=== PATIENT | female | born 1980 | race Two or more races ===

== ENCOUNTER 2019-05-26 19:48 | Emergency (ER) | payer SELFPAY ==
--- NOTE | 2019-05-26 20:12 | EDM.PDOC ---
ED HPI GENERAL MEDICAL PROBLEM - General Chief Complaint: Skin Complaint Stated Complaint: PT HAS RASH ON BODY Time Seen by Provider: 05/26/19 19:53 Source of Information: Reports: Patient History Limitations: Reports: No Limitations - History of Present Illness INITIAL COMMENTS - FREE TEXT/NARRATIVE: HISTORY AND PHYSICAL: History of present illness: Patient is a 39-year-old female who presents to the room today with complaints of multiple small boils which she has noticed over the past several weeks. Patient states she initially had one under her left breast and has noted a few along her underwear line and groin. She states she has been squeezing at them and does get minimal amount of purulent drainage from these. Denies any previous history of MRSA. Denies any history of diabetes. Patient has no systemic complaints. Review of systems: As per history of present illness and below otherwise all systems reviewed and negative. Past medical history: As per history of present illness and as reviewed below otherwise noncontributory. Surgical history: As per history of present illness and as reviewed below otherwise noncontributory. Social history: See social history for further information Family history: As per history of present illness and as reviewed below otherwise noncontributory. Physical exam: General: Well-developed and well-nourished 39-year-old female. Alert and oriented. Nontoxic appearing and in no acute distress. HEENT: Atraumatic, normocephalic, pupils equal and reactive bilaterally, negative for conjunctival pallor or scleral icterus, mucous membranes moist, trachea midline. No drooling or trismus noted. No meningeal signs. No hot potato voice noted. Lungs: Clear to auscultation, breath sounds equal bilaterally, chest nontender. Heart: S1S2, regular rate and rhythm without overt murmur Abdomen: Soft, nondistended, nontender. Skin: Several scattered localized areas of erythema with a white center, nonfluctuant, nonindurated. Otherwise skin is intact, warm, dry. No lesions or rashes noted. Extremities: Atraumatic, moves all extremities per self without difficulty or deficits, negative for cords or calf pain. Neurovascular unremarkable. Neuro: Awake, alert, oriented. Cranial nerves II through XII unremarkable. Cerebellum unremarkable. Motor and sensory unremarkable throughout. Exam nonfocal. Notes: The areas do not appear that they can be I&D. We discussed medication and supportive care measures. Encouraged her to follow-up with her primary care provider for reevaluation. Voices understanding and is agreeable to plan of care. Denies any further questions or concerns at this time. Diagnostics: None Therapeutics: None Prescription: Bactrim DS Impression: Folliculitis Plan: 1. Wash the areas gently with soap and water. Keep them clean and dry. Please avoid squeezing or poking them. 2. Take the medication as directed. If symptoms do not improve please follow-up with primary care as we discussed. 3. Return to the ED as needed and as discussed. Definitive disposition and diagnosis as appropriate pending reevaluation and review of above. Generalized Pain Score (Numeric/FACES): 7 - Related Data Allergies Allergy/AdvReac Type Severity Reaction Status Date / Time No Known Allergies Allergy Verified 05/26/19 20:09 Home Meds: Home Meds Sulfamethoxazole/Trimethoprim [Bactrim Ds Tablet] 1 each PO BID 10 Days #20 tablet 05/26/19 [Rx] ED ROS GENERAL - Review of Systems Review Of Systems: ROS reveals no pertinent complaints other than HPI. ED EXAM, SKIN/RASH Exam: See Below (See dictation) Course - Vital Signs Last Recorded V/S: Last Vital Signs Temp 96.8 F 05/26/19 20:07 Pulse 87 05/26/19 20:07 Resp 18 05/26/19 20:07 BP 132/80 05/26/19 20:07 Pulse Ox 98 05/26/19 20:07 Departure - Departure Time of Disposition: 20:19 Disposition: Home, Self-Care 01 Clinical Impression: Folliculitis - Discharge Information Prescriptions: Sulfamethoxazole/Trimethoprim [Bactrim Ds Tablet] 1 each PO BID 10 Days #20 tablet Instructions: MRSA Infection, Adult Referrals: PCP,None [Primary Care Provider] - Forms: ED Department Discharge Additional Instructions: The following information is given to patients seen in the emergency department who are being discharged to home. This information is to outline your options for follow-up care. We provide all patients seen in our emergency department with a follow-up referral. The need for follow-up, as well as the timing and circumstances, are variable depending upon the specifics of your emergency department visit. If you don't have a primary care physician on staff, we will provide you with a referral. We always advise you to contact your personal physician following an emergency department visit to inform them of the circumstance of the visit and for follow-up with them and/or the need for any referrals to a consulting specialist. The emergency department will also refer you to a specialist when appropriate. This referral assures that you have the opportunity for follow-up care with a specialist. All of these measure are taken in an effort to provide you with optimal care, which includes your follow-up. Under all circumstances we always encourage you to contact your private physician who remains a resource for coordinating your care. When calling for follow-up care, please make the office aware that this follow-up is from your recent emergency room visit. If for any reason you are refused follow-up, please contact the [facility] Emergency Department at and asked to speak to the emergency department charge nurse. [facility] [address] [place] [id number] [facility] [address] [place] [id number] 1. Wash the areas gently with soap and water. Keep them clean and dry. Please avoid squeezing or poking them. 2. Take the medication as directed. If symptoms do not improve please follow-up with primary care as we discussed. 3. Return to the ED as needed and as discussed.
== END 2019-05-26 20:31 | disposition home or self-care (01) ==
LOC: MW.ED 19:48
DX: L73.9 Follicular disorder, unspecified (principal)
CPT/HCPCS: 99282

== ENCOUNTER 2019-06-01 17:54 | Emergency (ER) | payer SELFPAY ==
--- NOTE | 2019-06-01 19:24 | EDM.PDOC ---
ED HPI GENERAL MEDICAL PROBLEM - General Chief Complaint: General Stated Complaint: SICK Time Seen by Provider: 06/01/19 18:38 - History of Present Illness INITIAL COMMENTS - FREE TEXT/NARRATIVE: HISTORY AND PHYSICAL: History of present illness: The patient is a 39-year-old female who was seen here in our emergency department on May 26 for small areas of boils and folliculitis and was placed on Bactrim which she is currently taking. She presents for reevaluation of these areas because she is concerned that they are not healing. The patient also is taking an antibiotic, doxycycline, that she got from a doctor in [place] and she is not sure if that is helping or not. She states compliance with Bactrim. She is currently on her menstrual cycle which occurred at the normal time and denies and says she has some lower back pain which she thinks is from her period and she thinks she may have had a slight fever this morning which is now gone and had some nausea and vomiting and she has had food and drinks since that time. She says that she has some discomfort at one of the areas of her left breast as well as her lower abdominal area but has no abdominal pain Review of systems: As per history of present illness and below otherwise all systems reviewed and negative. Past medical history: As per history of present illness and as reviewed below otherwise noncontributory. Surgical history: As per history of present illness and as reviewed below otherwise noncontributory. Social history: No reported history of drug or alcohol abuse. Family history: As per history of present illness and as reviewed below otherwise noncontributory. Physical exam: Female is nontoxic and vital signs are noted by me. She moves easily without distress in the ED HEENT: Atraumatic, normocephalic, negative for conjunctival pallor or scleral icterus, mucous membranes moist, throat clear, neck supple, nontender, trachea midline. Lungs: Clear to auscultation, breath sounds equal bilaterally, chest nontender. Heart: S1S2, regular in rhythm no overt murmurs Abdomen: Soft, nondistended, nontender. Negative for costovertebral tenderness. Pelvis: Deferred Genitourinary: Deferred. Rectal: Deferred. Extremities: Atraumatic, negative for cords or calf pain. Neurovascular unremarkable. Neuro: Awake, alert, oriented. Cranial nerves II through XII unremarkable. Cerebellum unremarkable. Motor and sensory unremarkable throughout. Exam nonfocal. Skin: Turgor is normal and there are scattered areas representing the skin lesions that the patient was seen for on May 26 which now demonstrate healing, one noted at the right lower buttocks area, one noted at left lower buttocks area, one at the right medial breast as well as a few scattered areas on the lower mid abdomen. There are 2 other areas one at the lateral left breast which still shows some erythema but no fluctuance or drainage as well as one area in the lower abdominal wall which also demonstrates some surrounding erythema but no fluctuance or drainage. All of these skin areas demonstrate healing consistent with the patient's ongoing therapy. Diagnostics: [] Therapeutics: [] I discussed with the patient that she needs to continue the Bactrim antibiotics that she has 5 more days of I will add Bactroban to apply topically to the areas that have some open component as described above. I've advised her to connect with one of her clinic provider for reevaluation and further care and to return here if any of her other vague symptoms eval for develop. She was advised push hydration and use [id number] medications for pain or fevers. Impression: Reevaluation of folliculitis/skin lesions/cellulitis Definitive disposition and diagnosis as appropriate pending reevaluation and review of above. Generalized Pain Score (Numeric/FACES): 5 - Related Data Allergies Allergy/AdvReac Type Severity Reaction Status Date / Time No Known Allergies Allergy Verified 05/26/19 20:09 Home Meds: Home Meds Sulfamethoxazole/Trimethoprim [Bactrim Ds Tablet] 1 each PO BID 10 Days #20 tablet 05/26/19 [Rx] Doxycycline [Vibramycin] 100 mg PO BID 06/01/19 [History] Past Medical History - Past Health History Medical/Surgical History: Denies Medical/Surgical History - Past Surgical History HEENT Surgical History: Reports: Other (See Below) Other HEENT Surgeries/Procedures: ear surgery Social & Family History - Family History Family Medical History: Noncontributory - Tobacco Use Smoking Status *Q: Never Smoker Second Hand Smoke Exposure: No - Caffeine Use Caffeine Use: Reports: Soda - Recreational Drug Use Recreational Drug Use: No ED ROS GENERAL - Review of Systems Review Of Systems: ROS reveals no pertinent complaints other than HPI. ED EXAM, GENERAL - Physical Exam Exam: See Below (see dictation) Course - Vital Signs Last Recorded V/S: Last Vital Signs Temp 36.1 C 06/01/19 18:07 Pulse 93 06/01/19 18:07 Resp 20 06/01/19 18:07 BP 102/72 06/01/19 18:07 Pulse Ox 98 06/01/19 18:07 Departure - Departure Time of Disposition: 19:24 Disposition: Home, Self-Care 01 Condition: Good Clinical Impression: Cellulitis Qualifiers: Site of cellulitis: unspecified site Qualified Code(s): L03.90 - Cellulitis, unspecified - Discharge Information Referrals: PCP,None [Primary Care Provider] - Additional Instructions: The following information is given to patients seen in the emergency department who are being discharged to home. This information is to outline your options for follow-up care. We provide all patients seen in our emergency department with a follow-up referral. The need for follow-up, as well as the timing and circumstances, are variable depending upon the specifics of your emergency department visit. If you don't have a primary care physician on staff, we will provide you with a referral. We always advise you to contact your personal physician following an emergency department visit to inform them of the circumstance of the visit and for follow-up with them and/or the need for any referrals to a consulting specialist. The emergency department will also refer you to a specialist when appropriate. This referral assures that you have the opportunity for followup care with a specialist. All of these measure are taken in an effort to provide you with optimal care, which includes your followup. Under all circumstances we always encourage you to contact your private physician who remains a resource for coordinating your care. When calling for followup care, please make the office aware that this follow-up is from your recent emergency room visit. If for any reason you are refused follow-up, please contact the [facility] emergency department at and ask to speak to the emergency department charge nurse. [facility] Primary care- Internal Medicine and Family [address] [id number] Please continue and finish the Bactrim antibiotics that you have that you received here on May 26. At the topical education the you've been prescribed today and apply this mostly to the area at your left breast in the lower abdomen where there is redness and the skin is more irritated. Please call and connect with one of our providers in the clinic or your provider for reevaluation further care after you complete the antibiotic therapy and return to ER as needed and as discussed
== END 2019-06-01 19:45 | disposition home or self-care (01) ==
LOC: MW.ED 17:54
DX: L03.311 Cellulitis of abdominal wall (principal); N61.0 Mastitis without abscess
CPT/HCPCS: 99283

== ENCOUNTER 2019-11-10 13:24 | Emergency (ER) | payer OTHER, SELFPAY ==
[2019-11-10] MEDS ORDERED: Lidocaine 1% 10 ML MDV INJECT ONE (13:39)
--- NOTE | 2019-11-10 13:48 | EDM.PDOC ---
ED HPI GENERAL MEDICAL PROBLEM - General Chief Complaint: Skin Complaint Stated Complaint: ABCESS UNDER ARM Time Seen by Provider: 11/10/19 13:29 Source of Information: Reports: Patient History Limitations: Reports: No Limitations - History of Present Illness INITIAL COMMENTS - FREE TEXT/NARRATIVE: HISTORY AND PHYSICAL: History of present illness: Patient is a 39-year-old female who presents to the emergency room with concerns of an abscess to her back. Patient reports she does have a history of MRSA and has taken antibiotics for previous abscesses. Yesterday she went swimming with her son and noticed a small area of redness along her bra line. She states she was concerned that she could have a new abscess. Patient denies any fever, chills, headache, change in vision, syncope or near syncope. Denies any chest pain, back pain, shortness of breath or cough. Denies any abdominal pain, nausea, vomiting, diarrhea, constipation or dysuria. Patient has been eating and drinking appropriately. Review of systems: As per history of present illness and below otherwise all systems reviewed and negative. Past medical history: As per history of present illness and as reviewed below otherwise noncontributory. Surgical history: As per history of present illness and as reviewed below otherwise noncontributory. Social history: See social history for further information Family history: As per history of present illness and as reviewed below otherwise noncontributory. Physical exam: General: Well-developed and well-nourished 39-year-old female. Alert and oriented. Nontoxic-appearing and in no acute distress. HEENT: Atraumatic, normocephalic, pupils equal and reactive bilaterally, negative for conjunctival pallor or scleral icterus, mucous membranes moist, trachea midline. No drooling or trismus noted. No meningeal signs. No hot potato voice noted. Lungs: Clear to auscultation, breath sounds equal bilaterally, chest nontender. Heart: S1S2, regular rate and rhythm without overt murmur Abdomen: Soft, nondistended, nontender. Negative for masses or hepatosplenomegaly. Negative for costovertebral tenderness. Skin: Irritated follicle noted to the right flank area along her bra line. She does have some healing boils along her pant line which are non-indurated and nonfluctuant. Remaining skin is intact, warm, dry. No lesions or rashes noted. Extremities: Atraumatic, moves all extremities per self without difficulty or deficits, negative for cords or calf pain. Neurovascular unremarkable. Neuro: Awake, alert, oriented. Cranial nerves II through XII unremarkable. Cerebellum unremarkable. Motor and sensory unremarkable throughout. Exam nonfocal. Notes: The area in question on her right flank area is nonfluctuant and cannot be drained at this time. Approximately the size of a nickel. She does have some resolving areas along her pant line which she states were abscesses before and are currently "healing now". Signs and symptoms that would prompt her to return to the emergency room were reviewed and discussed. Patient and supportive care measures were reviewed and discussed. Voices understanding and is agreeable to plan of care. Denies any further questions or concerns at this time. Diagnostics: None Therapeutics: None Prescription: Bactrim DS Impression: Folliculitis Plan: 1. Keep the skin clean and dry. Continue to monitor sites for improvement. 2. Tylenol and/or ibuprofen as needed and as directed. 3. Follow-up with your primary care provider as we discussed. Return to the ED as needed and as discussed. Definitive disposition and diagnosis as appropriate pending reevaluation and review of above. skin, back Pain Score (Numeric/FACES): 5 - Related Data Allergies Allergy/AdvReac Type Severity Reaction Status Date / Time No Known Allergies Allergy Verified 11/10/19 13:36 Home Meds: Home Meds . [No Known Home Meds] 11/10/19 [History] Past Medical History - Past Health History Medical/Surgical History: Denies Medical/Surgical History - Infectious Disease History Infectious Disease History: Reports: MRSA - Past Surgical History HEENT Surgical History: Reports: Other (See Below) Other HEENT Surgeries/Procedures: ear surgery Social & Family History - Family History Family Medical History: Noncontributory - Tobacco Use Smoking Status *Q: Former Smoker Used Tobacco, but Quit: Yes Month/Year Tobacco Last Used: 2018 - Caffeine Use Caffeine Use: Reports: Coffee, Soda - Recreational Drug Use Recreational Drug Use: No ED ROS GENERAL - Review of Systems Review Of Systems: Comprehensive ROS is negative, except as noted in HPI. ED EXAM, SKIN/RASH Exam: See Below (See dictation) Course - Vital Signs Last Recorded V/S: Last Vital Signs Temp 97.9 F 11/10/19 13:34 Pulse 87 11/10/19 13:34 Resp 16 11/10/19 13:34 BP 134/77 11/10/19 13:34 Pulse Ox 97 11/10/19 13:34 - Orders/Labs/Meds Meds: Medications Discontinued Medications Generic Name Dose Route Start Last Admin Trade Name Leatha PRN Reason Stop Dose Admin Lidocaine HCl 10 ml 11/10/19 13:39 Xylocaine 1% INJECT 11/10/19 13:40 ONETIME ONE Departure - Departure Time of Disposition: 13:48 Disposition: Home, Self-Care 01 Clinical Impression: Folliculitis - Discharge Information Referrals: PCP,None [Primary Care Provider] - Additional Instructions: The following information is given to patients seen in the emergency department who are being discharged to home. This information is to outline your options for follow-up care. We provide all patients seen in our emergency department with a follow-up referral. The need for follow-up, as well as the timing and circumstances, are variable depending upon the specifics of your emergency department visit. If you don't have a primary care physician on staff, we will provide you with a referral. We always advise you to contact your personal physician following an emergency department visit to inform them of the circumstance of the visit and for follow-up with them and/or the need for any referrals to a consulting specialist. The emergency department will also refer you to a specialist when appropriate. This referral assures that you have the opportunity for follow-up care with a specialist. All of these measure are taken in an effort to provide you with optimal care, which includes your follow-up. Under all circumstances we always encourage you to contact your private physician who remains a resource for coordinating your care. When calling for follow-up care, please make the office aware that this follow-up is from your recent emergency room visit. If for any reason you are refused follow-up, please contact the [facility] Emergency Department at and asked to speak to the emergency department charge nurse. [facility] [address] [place] [address] [id number] [address] [address] 1. Keep the skin clean and dry. Continue to monitor sites for improvement. 2. Tylenol and/or ibuprofen as needed and as directed. 3. Follow-up with your primary care provider as we discussed. Return to the ED as needed and as discussed. Sepsis Event Note - Evaluation Sepsis Screening Result: No Definite Risk - Focused Exam Vital Signs: Vital Signs Temp Pulse Resp BP Pulse Ox 11/10/19 13:34 97.9 F 87 16 134/77 97 Date Exam was Performed: 11/10/19 Time Exam was Performed: 13:42
== END 2019-11-10 14:01 | disposition home or self-care (01) ==
LOC: MW.ED 13:24
DX: L73.9 Follicular disorder, unspecified (principal); Z87.891 Personal history of nicotine dependence
CPT/HCPCS: 99282

== ENCOUNTER 2020-01-03 04:13 | Emergency (ER) | payer SELFPAY ==
--- NOTE | 2020-01-03 04:35 | EDM.PDOC ---
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 Patient states pain does radiate to the back. She rates the pain as moderate to severe in intensity. She is feeling a little nauseous denies any vomiting or diarrhea. Patient denies any dysuria or hematuria. Patient is 8 weeks by a positive home tests and last menstrual period. She denies any vaginal bleeding. She is taken nothing for current pain symptoms. Patient is scheduled for her first OB appointment this week. This is a second time she has been . Onset: Today Duration: Getting Worse Location: Reports: Abdomen Quality: Reports: Ache Severity: Moderate Improves with: Reports: None Worsens with: Reports: None Associated Symptoms: Reports: No Other Symptoms low pelvic, wraps around to R lower back Pain Score (Numeric/FACES): 7 - Related Data Allergies Allergy/AdvReac Type Severity Reaction Status Date / Time No Known Allergies Allergy Verified 01/03/20 04:27 Home Meds: Home Meds Folic Acid 1 tab PO DAILY 01/03/20 [History] cephALEXin [Keflex] 500 mg PO Q8H #20 cap 01/03/20 [Rx] Past Medical History - Past Health History Medical/Surgical History: Denies Medical/Surgical History - Infectious Disease History Infectious Disease History: Reports: MRSA - Past Surgical History HEENT Surgical History: Reports: Other (See Below) Other HEENT Surgeries/Procedures: ear surgery Social & Family History - Family History Family Medical History: Noncontributory - Caffeine Use Caffeine Use: Reports: Coffee, Soda ED ROS GENERAL - Review of Systems Review Of Systems: Comprehensive ROS is negative, except as noted in HPI. ED EXAM - Physical Exam Exam: See Below Exam Limited By: Other (Tajik is her second language.) General Appearance: Alert, No Apparent Distress Head: Atraumatic Neck: Normal Inspection, Supple Respiratory/Chest: No Respiratory Distress, Lungs Clear, Normal Breath Sounds Cardiovascular: Regular Rate, Rhythm, No JVD GI/Abdominal Exam: Normal Bowel Sounds, Soft, Tender, Other (Patient has mild suprapubic tenderness without any guarding or mass appreciated.) Back Exam: Normal Inspection. No: CVA Tenderness (L), CVA Tenderness (R) Extremities: Normal Inspection Neurological: Alert, Oriented Psychiatric: Normal Affect Skin Exam: Warm, Normal Color Course - Vital Signs Text/Narrative:: Baseline quant was drawn. Patient's urine is positive for urinary tract infection I am starting her on Keflex. Ultrasound shows a single IUP at 8 weeks. Patient has an appointment with her bioprocessing manufacturing technician for the first time today. She is instructed to return to emergency department anytime her symptoms were to worsen otherwise she may take Tylenol as needed. Last Recorded V/S: Last Vital Signs Temp 36.3 C 01/03/20 06:03 Pulse 64 01/03/20 06:03 Resp 14 01/03/20 06:03 BP 97/64 01/03/20 06:03 Pulse Ox 99 01/03/20 06:03 - Orders/Labs/Meds Orders: Active Orders 24 hr Category Date Time Status CULTURE URINE [RM] Stat Lab 01/03/20 04:25 Received Labs: Laboratory Tests 01/03/20 01/03/20 01/03/20 Range/Units 04:25 04:45 04:45 WBC 9.81 (4.0-11.0) K/uL RBC 4.57 (4.30-5.90) M/uL Hgb 14.5 (12.0-16.0) g/dL Hct 42.5 (36.0-46.0) % MCV 93.0 (80.0-98.0) fL MCH 31.7 (27.0-32.0) pg MCHC 34.1 (31.0-37.0) g/dL RDW Std Deviation 43.1 (28.0-62.0) fl RDW Coeff of Yary 13 (11.0-15.0) % Plt Count 264 (150-400) K/uL MPV 9.30 (7.40-12.00) fL Neut % (Auto) 66.9 (48.0-80.0) % Lymph % (Auto) 22.3 (16.0-40.0) % Gilliam % (Auto) 8.0 (0.0-15.0) % Eos % (Auto) 2.4 (0.0-7.0) % Baso % (Auto) 0.4 (0.0-1.5) % Neut # (Auto) 6.6 H (1.4-5.7) K/uL Lymph # (Auto) 2.2 (0.6-2.4) K/uL Gilliam # (Auto) 0.8 (0.0-0.8) K/uL Eos # (Auto) 0.2 (0.0-0.7) K/uL Baso # (Auto) 0.0 (0.0-0.1) K/uL Nucleated RBC % 0.0 /100WBC Nucleated RBCs # 0 K/uL HCG, Quant 86645.0 mIU/mL Urine Color YELLOW Urine Appearance SLT CLOUDY Urine pH 6.0 (5.0-8.0) Ur Specific [place] >= 1.030 (1.001-1.035) Urine Protein NEGATIVE (NEGATIVE) mg/dL Urine Glucose (UA) NEGATIVE (NEGATIVE) mg/dL Urine Ketones NEGATIVE (NEGATIVE) mg/dL Urine Occult Blood MODERATE H (NEGATIVE) Urine Nitrite NEGATIVE (NEGATIVE) Urine Bilirubin NEGATIVE (NEGATIVE) Urine Urobilinogen 0.2 (<2.0) EU/dL Ur Leukocyte Esterase MODERATE H (NEGATIVE) Urine RBC 0-2 (0-2/HPF) Urine WBC 6-12 (0-5/HPF) Ur Epithelial Cells FEW (NONE-FEW) Urine Bacteria 1+ H (NEGATIVE) Meds: Medications Discontinued Medications Generic Name Dose Route Start Last Admin Trade Name Freq PRN Reason Stop Dose Admin Acetaminophen 650 mg 01/03/20 04:38 01/03/20 04:53 Tylenol PO 01/03/20 04:39 650 mg NOW ONE Administration Cephalexin 500 mg 01/03/20 05:39 01/03/20 06:06 Keflex PO 01/03/20 05:40 500 mg ONETIME ONE Administration Sodium Chloride 1,000 mls @ 999 mls/hr 01/03/20 04:37 01/03/20 04:51 Normal Saline IV 01/03/20 05:37 999 mls/hr .BOLUS ONE Administration Departure - Departure Time of Disposition: 06:09 Disposition: Home, Self-Care 01 Condition: Good Clinical Impression: First trimester - Discharge Information Instructions: First Trimester of , [id number] Referrals: PCP,None [Primary Care Provider] - Forms: ED Department Discharge Additional Instructions: Follow-up with bioprocessing manufacturing technician as scheduled today. Return to ER if worse. Keflex for urinary tract infection. Increase fluids. Tylenol as needed. Care Plan Goals: The following information is given to patients seen in the emergency department who are being discharged to home. This information is to outline your options for follow-up care. We provide all patients seen in our emergency department with a follow-up referral. The need for follow-up, as well as the timing and circumstances, are variable depending upon the specifics of your emergency department visit. If you don't have a primary care physician on staff, we will provide you with a referral. We always advise you to contact your personal physician following an emergency department visit to inform them of the circumstance of the visit and for follow-up with them and/or the need for any referrals to a consulting specialist. The emergency department will also refer you to a specialist when appropriate. This referral assures that you have the opportunity for follow-up care with a specialist. All of these measure are taken in an effort to provide you with optimal care, which includes your follow-up. Under all circumstances we always encourage you to contact your private physician who remains a resource for coordinating your care. When calling for follow-up care, please make the office aware that this follow-up is from your recent emergency room visit. If for any reason you are refused follow-up, please contact the [facility] Emergency Department at and asked to speak to the emergency department charge nurse. Sepsis Event Note - Evaluation Sepsis Screening Result: No Definite Risk - Focused Exam Vital Signs: Vital Signs Temp Pulse Resp BP Pulse Ox 01/03/20 06:03 36.3 C 64 14 97/64 99 01/03/20 04:24 36.3 C 87 18 110/81 97 Date Exam was Performed: 01/03/20 Time Exam was Performed: 06:08 - My Orders Last 24 Hours: My Active Orders 01/03/20 04:25 CULTURE URINE [RM] Stat - Assessment/Plan Last 24 Hours: My Active Orders 01/03/20 04:25 CULTURE URINE [RM] Stat
[2020-01-03] MEDS ORDERED: Sodium Chloride 0.9% 1,000 ML IV ONE (04:37)
[2020-01-03] MEDS ORDERED: Acetaminophen 325 MG Tab PO ONE (04:38)
[2020-01-03] MEDS ORDERED: Cephalexin 500 MG Cap PO ONE (05:39)
--- NOTE | 2020-01-03 06:00 | US ---
INDICATION: Pelvic pain TECHNIQUE: Ultrasound OB pelvis transvaginal. Real time saul scale imaging of the pelvis was performed. COMPARISON: None FINDINGS: Gestational sac: Sonographic imaging demonstrates a single intrauterine gestation with a normal appearance. A small subchorionic hemorrhage is present along the inferior margin of the gestational sac.The amount of fluid within the sac appears appropriate for gestational age. Fetus: The embryo demonstrates a regular cardiac rate measuring 156 beats per minute. The embryo`s crown rump length measurement of 18 mm corresponds to a gestational age of 8 weeks, 2 days. There are no gross abnormalities noted within the embryo at this early state of development. There is a normal appearing yolk sac. Placenta: The placenta has not yet developed. Pelvis: The visualized cervix is closed. The visualized myometrium appears normal. The ovaries are of normal size. A thick walled corpus luteal cyst is seen in the left ovary. Arterial blood flow seen in both ovaries. No significant ascites noted. IMPRESSION: 1. Single viable intrauterine with an estimated gestational age of 8 weeks, 2 days. 2. A small subchorionic hemorrhage is present along the inferior margin of the gestational sac. Dictated by Arthur Rudolph MD @ 01/03/2020 5:57:47 AM Dictated by: Arthur Rudolph MD @ 01/03/2020 05:59:15 (Electronically Signed)
== END 2020-01-03 06:22 | disposition home or self-care (01) ==
LOC: MW.ED 04:13
DX: O99.89 Other specified diseases and conditions complicating pregnancy, childbirth and the puerperium (principal); R10.30 Lower abdominal pain, unspecified; Z3A.08 8 weeks gestation of pregnancy
CPT/HCPCS: 36415; 76801; 81001; 84702; 85025; 87086; 99284; A9270; J7030; 99282

== ENCOUNTER 2020-01-24 21:47 | Emergency (ER) | payer SELFPAY ==
--- NOTE | 2020-01-24 21:53 | EDM.PDOC ---
ED HPI GENERAL MEDICAL PROBLEM - General Chief Complaint: Genitourinary Problem Stated Complaint: UTI Time Seen by Provider: 01/24/20 21:50 Source of Information: Reports: Patient History Limitations: Reports: No Limitations - History of Present Illness INITIAL COMMENTS - FREE TEXT/NARRATIVE: Patient is a 39-year-old female who is with a uterine seen by me 3 weeks ago at which time she had an ultrasound and a urinary tract infection. I placed her on Keflex but she has had no follow-up with her UTI. Patient became symptomatic again 3 days ago and is complaining of increased frequency and some dysuria. She is complaining of some suprapubic pain but denies any CVA or back tenderness. She has not been running a fever is not nauseous vomiting or having diarrhea. She denies any hematuria or any cramping pain. She had no vaginal bleeding. 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 ED EXAM, RENAL/ - Physical Exam Exam: See Below Exam Limited By: Language Barrier General Appearance: Alert, No Apparent Distress Head: Normocephalic Neck: Normal Inspection, Supple Respiratory/Chest: No Respiratory Distress, Lungs Clear Cardiovascular: Regular Rate, Rhythm, No Edema GI/Abdominal: Soft, Non-Tender Back Exam: Normal Inspection. No: CVA Tenderness (L), CVA Tenderness (R) Extremities: Normal Inspection Neurological: Alert, Oriented Psychiatric: Normal Affect Skin Exam: Warm, Dry Course - Vital Signs Text/Narrative:: Urine is positive for moderate amount of leukocyte Estrace. I am starting patient on Macrobid which is a class B for . Apparently patient failed her course of Keflex 3 weeks ago. I am recommending she follow-up with her managing attorney and/or PCP for recheck in 7 days. Return to ER sooner if not improving or worse. Last Recorded V/S: Last Vital Signs Temp 36.2 C 01/24/20 21:51 Pulse 85 01/24/20 22:23 Resp 17 01/24/20 22:23 BP 109/73 01/24/20 22:23 Pulse Ox 98 01/24/20 22:23 - Orders/Labs/Meds Labs: Laboratory Tests 01/24/20 Range/Units 22:00 Urine Color YELLOW Urine Appearance CLEAR Urine pH 5.5 (5.0-8.0) Ur Specific Lane >= 1.030 (1.001-1.035) Urine Protein NEGATIVE (NEGATIVE) mg/dL Urine Glucose (UA) NEGATIVE (NEGATIVE) mg/dL Urine Ketones NEGATIVE (NEGATIVE) mg/dL Urine Occult Blood NEGATIVE (NEGATIVE) Urine Nitrite NEGATIVE (NEGATIVE) Urine Bilirubin NEGATIVE (NEGATIVE) Urine Urobilinogen 0.2 (<2.0) EU/dL Ur Leukocyte Esterase MODERATE H (NEGATIVE) Urine RBC 0-1 (0-2/HPF) Urine WBC 1-2 (0-5/HPF) Ur Epithelial Cells RARE (NONE-FEW) Urine Bacteria RARE (NEGATIVE) Meds: Medications Discontinued Medications Generic Name Dose Route Start Last Admin Trade Name Freq PRN Reason Stop Dose Admin Nitrofurantoin Macrocrystals 100 mg 01/24/20 22:16 01/24/20 22:21 Macrobid PO 01/24/20 22:17 100 mg ONETIME ONE Administration Departure - Departure Time of Disposition: 23:15 Disposition: Home, Self-Care 01 Condition: Good Clinical Impression: Urinary tract infection during in first trimester, UTI, Urinary tract infectious disease - Discharge Information Instructions: and Urinary Tract Infection Forms: ED Department Discharge Additional Instructions: The following information is given to patients seen in the emergency department who are being discharged to home. This information is to outline your options for follow-up care. We provide all patients seen in our emergency department with a follow-up referral. The need for follow-up, as well as the timing and circumstances, are variable depending upon the specifics of your emergency department visit. If you don't have a primary care physician on staff, we will provide you with a referral. We always advise you to contact your personal physician following an emergency department visit to inform them of the circumstance of the visit and for follow-up with them and/or the need for any referrals to a consulting specialist. The emergency department will also refer you to a specialist when appropriate. This referral assures that you have the opportunity for follow-up care with a specialist. All of these measure are taken in an effort to provide you with optimal care, which includes your follow-up. Under all circumstances we always encourage you to contact your private physician who remains a resource for coordinating your care. When calling for follow-up care, please make the office aware that this follow-up is from your recent emergency room visit. If for any reason you are refused follow-up, please contact the [facility] Emergency Department at and asked to speak to the emergency department charge nurse. Care Plan Goals: Macrobid as prescribed. Follow-up with CHECKING DEPARTMENT SUPERVISOR or PCP in days to recheck your urine. ER if having fever or chills, vomiting or worse. Sepsis Event Note - Focused Exam Vital Signs: Vital Signs Temp Pulse Resp BP Pulse Ox 01/24/20 22:23 85 17 109/73 98 01/24/20 21:51 36.2 C 93 18 115/81 98 Date Exam was Performed: 01/24/20 Time Exam was Performed: 23:11
[2020-01-24] MEDS ORDERED: Nitrofurantoin Monohydrate/Macrocrystalline 100 MG Cap PO ONE (22:16)
== END 2020-01-24 23:25 | disposition home or self-care (01) ==
LOC: MW.ED 21:47
DX: O23.41 Unspecified infection of urinary tract in pregnancy, first trimester (principal); Z3A.12 12 weeks gestation of pregnancy
CPT/HCPCS: 81001; 99284; A9270; 99282

== ENCOUNTER 2020-06-27 10:30 | Emergency (ER) | payer SELFPAY | END 2020-06-27 12:52 | disposition left against medical advice (07) | LOC: MW.ED 10:30 | DX: Z53.21 Procedure and treatment not carried out due to patient leaving prior to being seen by health care provider (principal) ==

== ENCOUNTER 2020-08-09 12:04 | Inpatient (IN) | payer MEDICAID ==
[2020-08-09] MEDS ORDERED: Nalbuphine 10 MG/1 ML Vial IVPUSH PRN (15:18)
[2020-08-09] MEDS ORDERED: Lidocaine 1% 50 ML MDV INJECT PRN (15:18)
[2020-08-09] MEDS ORDERED: Sodium Chloride 0.9% 10 ML Syringe FLUSH PRN (15:18)
[2020-08-09] MEDS ORDERED: Carboprost Tromethamine 250 MCG/1 ML Amp IM PRN (15:18)
[2020-08-09] MEDS ORDERED: Sodium Chloride 0.9% 10 ML SDV IV PRN (15:18)
[2020-08-09] MEDS ORDERED: Methylergonovine 0.2 MG/1 ML Amp IM PRN ×2 (15:18→19:09)
[2020-08-09] MEDS ORDERED: Tranexamic Acid 1,000 MG in Sodium Chloride 0.9% 100 ML IV PRN ×2 (15:18→19:09)
[2020-08-09] MEDS ORDERED: Butorphanol 1 MG/ML SDV IVPUSH PRN (15:18)
[2020-08-09] MEDS ORDERED: Misoprostol 200 MCG Tab PO PRN (15:18)
[2020-08-09] MEDS ORDERED: Water For Irrigation,Sterile 1,000 ML Container IRR PRN (15:18)
[2020-08-09] MEDS ORDERED: Sodium Chloride 0.9% 2.5 ML Syringe FLUSH PRN (15:18)
[2020-08-09] MEDS ORDERED: Lactated Ringers 1,000 ML IV SCH (15:30)
[2020-08-09] MEDS ORDERED: Oxytocin/0.9 % Sodium Chloride 30 UNIT/500 ML BAG IV SCH (15:30)
[2020-08-09] MEDS ORDERED: fentaNYL 100 MCG/2 ML SDV ONE ×3 (16:00→19:21)
[2020-08-09] MEDS ORDERED: Ropivacaine HCl/PF 100 ML ONE (16:00)
--- NOTE | 2020-08-09 16:06 | PCM.LDHP ---
L&D History of Present Illness - General Date of Service: 08/09/20 Admit Problem/Dx: Patient Status Order with Admit Dx/Problem 08/09/20 15:18 Patient Status [ADT] Routine Admission Diagnosis/Problem Admission Diagnosis/Problem Source of Information: Patient History Limitations: Reports: No Limitations - History of Present Illness Introduction:: 40yo at 39w3d [place] admitted for labor. Patient reports she had contractions starting 6hrs prior to presentation, gradually increasing in frequency and intensity. Denies LOF. Upon arrival in L&D she was found to have bloody show, with cervical dilatation of /-2. c/b AMA, UTI (e-coli) appropriately treated, and skin infection due to MRSA. - Related Data Allergies/Adverse Reactions: Allergies Allergy/AdvReac Type Severity Reaction Status Date / Time No Known Allergies Allergy Verified 08/07/20 15:16 Home Medications: Home Meds Calcium Carbonate/Vitamin D3 [Calcium 1,000 + D3 Caplet] 1 each PO DAILY 08/07/20 [History] Folic Acid 1 mg PO DAILY 08/07/20 [History] Past Medical History - Past Health History Medical/Surgical History: Denies Medical/Surgical History HEENT History: Reports: None Cardiovascular History: Reports: Other (See Below) Other Cardiovascular History: heart palpitations Respiratory History: Reports: None Gastrointestinal History: Reports: None Genitourinary History: Reports: None 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: Musculoskeletal History: Reports: None Neurological History: Reports: None Psychiatric History: Reports: None Endocrine/Metabolic History: Reports: None Hematologic History: Reports: None Oncologic (Cancer) History: Reports: None Dermatologic History: Reports: None - Infectious Disease History Infectious Disease History: Reports: MRSA - Past Surgical History HEENT Surgical History: Reports: Other (See Below) Other HEENT Surgeries/Procedures: ear surgery GI Surgical History: Reports: None Social & Family History - Family History Family Medical History: No Pertinent Family History - Caffeine Use Caffeine Use: Reports: Coffee, Soda H&P Review of Systems - Review of Systems: Review Of Systems: See Below General: Reports: No Symptoms HEENT: Reports: No Symptoms Pulmonary: Reports: No Symptoms Cardiovascular: Reports: No Symptoms Gastrointestinal: Reports: No Symptoms Genitourinary: Reports: No Symptoms Musculoskeletal: Reports: No Symptoms Skin: Reports: No Symptoms Psychiatric: Reports: No Symptoms L&D Exam - Exam Exam: See Below - Vital Signs Weight: 83.461 kg - OB Specific Contraction Intensity: Mild to Moderate Movement: Active Heart Tones: Present Heart Rate (FHR) Variability: Moderate (6-25 bmp) Estimated Weight: 7-8lbs - Leal Score Leal Score Cervix Position: Midposition Leal Score Consistency: Medium Leal Score Effacement: >80% Leal Score Dilation: 3-4 cm Leal Score 's Station: -2 Leal Score Total: 8 - Exam General: Alert Neck: Supple Lungs: Clear to Auscultation Cardiovascular: Regular Rate, Regular Rhythm GI/Abdominal Exam: Soft Extremities: Normal Inspection Skin: Warm Psychiatric: Alert, Normal Affect, Normal Mood - Patient Data Lab Results Last 24 hrs: Laboratory Results - last 24 hr 08/09/20 Range/Units 15:05 WBC 9.30 (4.0-11.0) K/uL RBC 4.34 (4.30-5.90) M/uL Hgb 13.5 (12.0-16.0) g/dL Hct 40.4 (36.0-46.0) % MCV 93.1 (80.0-98.0) fL MCH 31.1 (27.0-32.0) pg MCHC 33.4 (31.0-37.0) g/dL RDW Std Deviation 47.5 (28.0-62.0) fl RDW Coeff of Yary 14 (11.0-15.0) % Plt Count 222 (150-400) K/uL MPV 10.30 (7.40-12.00) fL Nucleated RBC % 0.0 /100WBC Nucleated RBCs # 0 K/uL Result Diagrams: 08/09/20 15:05 - Problem List (1) Active labor at term SNOMED Code(s): 99936901 ICD Code: [id number] - Status: Acute Priority: High Current Visit: Yes Problem List Initiated/Reviewed/Updated: Yes Orders Last 24hrs: Active Orders 24 hr Category Date Time Status Patient Status [ADT] Routine ADT 08/09/20 15:18 Active Heart Tones [RC] CONTINUOUS Care 08/09/20 15:18 Active Non Stress Test [RC] PER UNIT ROUTINE Care 08/09/20 15:18 Active May Shower [RC] ASDIRECTED Care 08/09/20 15:18 Active Notify Provider [RC] PRN Care 08/09/20 15:18 Active Up ad Drea [RC] ASDIRECTED Care 08/09/20 15:18 Active Vaginal Exam [RC] PRN Care 08/09/20 15:18 Active Vital Signs [RC] PER UNIT ROUTINE Care 08/09/20 15:18 Active CORONAVIRUS COVID-19 HEVER [MOLEC] Urgent Lab 08/09/20 15:10 Received RPR (SYPHILIS SERO) W/ RFLX [REF] Routine Lab 08/09/20 15:05 Received TYPE AND SCREEN [BBK] Routine Lab 08/09/20 15:05 Received Butorphanol [Stadol] Med 08/09/20 15:18 Active 1 mg IVPUSH Q1H PRN Carboprost Tromethamine [Hemabate DS] Med 08/09/20 15:18 Active 250 mcg IM ASDIRECTED PRN Lactated Ringers [Ringers, Lactated] 1,000 ml Med 08/09/20 15:30 Active IV ASDIRECTED Lidocaine 1% [Xylocaine 1%] Med 08/09/20 15:18 Active 50 ml INJECT ONETIME PRN Methylergonovine [Methergine] Med 08/09/20 15:18 Active 0.2 mg IM ASDIRECTED PRN Nalbuphine [Nubain] Med 08/09/20 15:18 Active 10 mg IVPUSH Q1H PRN Oxytocin/0.9 % Sodium Chloride [Oxytocin 30 Unit/500 ML Med 08/09/20 15:30 Active -NS] 30 unit in 500 ml IV TITRATE Sodium Chloride 0.9% [Normal Saline] Med 08/09/20 15:18 Active 10 ml IV ASDIRECTED PRN Sodium Chloride 0.9% [Saline Flush] Med 08/09/20 15:18 Active 10 ml FLUSH ASDIRECTED PRN Sodium Chloride 0.9% [Saline Flush] Med 08/09/20 15:18 Active 2.5 ml FLUSH ASDIRECTED PRN Tranexamic Acid [Cyklokapron] 1,000 mg Med 08/09/20 15:18 Active Sodium Chloride 0.9% [Normal Saline] 100 ml IV ONETIME Water For Irrigation,Sterile [Sterile Water for Med 08/09/20 15:18 Active Irrigation] 1,000 ml IRR ASDIRECTED PRN miSOPROStoL [Cytotec] Med 08/09/20 15:18 Active 200 mcg PO ONETIME PRN Scalp Electrode [WOMSER] Per Unit Routine Oth 08/09/20 15:18 Ordered Peripheral IV Insertion Adult [OM.PC] Routine Oth 08/09/20 15:18 Ordered Resuscitation Status Routine Resus Stat 08/09/20 15:18 Ordered Medication Orders Butorphanol Tartrate (Stadol) 1 mg IVPUSH Q1H PRN PRN Reason: Pain Carboprost Tromethamine (Hemabate Ds) 250 mcg IM ASDIRECTED PRN PRN Reason: Post Hemorrhage Lactated Ringer's (Ringers, Lactated) 1,000 mls @ 150 mls/hr IV ASDIRECTED ALONSO Last Admin: 08/09/20 15:45 Dose: 999 mls/hr Documented by: YOSHI Oxytocin/Sodium Chloride (Oxytocin 30 Unit/500 Ml-Ns) 30 unit in 500 mls @ 500 mls/hr IV TITRATE [facility] Tranexamic Acid 1,000 mg/ (Sodium Chloride) 110 mls @ 660 mls/hr IV ONETIME PRN PRN Reason: Bleeding Lidocaine HCl (Xylocaine 1%) 50 ml INJECT ONETIME PRN PRN Reason: Laceration repair Methylergonovine Maleate (Methergine) 0.2 mg IM ASDIRECTED PRN PRN Reason: Post Hemorrhage Misoprostol (Cytotec) 200 mcg PO ONETIME PRN PRN Reason: Post Hemorrhage Nalbuphine HCl (Nubain) 10 mg IVPUSH Q1H PRN PRN Reason: Pain (severe 7-10) Sodium Chloride (Saline Flush) 10 ml FLUSH ASDIRECTED PRN PRN Reason: Keep Vein Open Sodium Chloride (Saline Flush) 2.5 ml FLUSH ASDIRECTED PRN PRN Reason: Keep Vein Open Sodium Chloride (Normal Saline) 10 ml IV ASDIRECTED PRN PRN Reason: IV Use Sterile Water (Sterile Water For Irrigation) 1,000 ml IRR ASDIRECTED PRN PRN Reason: delivery Assessment/Plan Comment:: 40yo at 39w3d admitted for labor. Leal score 8, cat 1 tracing. Expectant management. Epidural PRN
--- NOTE | 2020-08-09 16:28 | PCM.PREANE ---
Preanesthetic Assessment - Anesthesia/Transfusion/Family Hx Anesthesia History: Prior Anesthesia Without Reaction Family History of Anesthesia Reaction: No - Review of Systems Cardiovascular: Palpitations - Physical Assessment NPO Status Date: 08/09/20 NPO Status Time: 14:00 Height: 1.6 m Weight: 83.461 kg ASA Class: 2 - Lab Values: Laboratory Last Values WBC 9.30 K/uL (4.0-11.0) 08/09/20 15:05 RBC 4.34 M/uL (4.30-5.90) 08/09/20 15:05 Hgb 13.5 g/dL (12.0-16.0) 08/09/20 15:05 Hct 40.4 % (36.0-46.0) 08/09/20 15:05 MCV 93.1 fL (80.0-98.0) 08/09/20 15:05 MCH 31.1 pg (27.0-32.0) 08/09/20 15:05 MCHC 33.4 g/dL (31.0-37.0) 08/09/20 15:05 RDW Std Deviation 47.5 fl (28.0-62.0) 08/09/20 15:05 RDW Coeff of Yary 14 % (11.0-15.0) 08/09/20 15:05 Plt Count 222 K/uL (150-400) 08/09/20 15:05 MPV 10.30 fL (7.40-12.00) 08/09/20 15:05 Nucleated RBC % 0.0 /100WBC 08/09/20 15:05 Nucleated RBCs # 0 K/uL 08/09/20 15:05 SARS-CoV-2 RNA (HEVER) POSITIVE (NEGATIVE) H 08/09/20 15:10 - Allergies Allergies/Adverse Reactions: Allergies Allergy/AdvReac Type Severity Reaction Status Date / Time No Known Allergies Allergy Verified 08/07/20 15:16 - Acknowledgements Anesthesia Type Planned: Epidural Pt an Appropriate Candidate for the Planned Anesthesia: Yes Alternatives and Risks of Anesthesia Discussed w Pt/Guardian: Yes Pt/Guardian Understands and Agrees with Anesthesia Plan: Yes PreAnesthesia Questionnaire - Past Health History Medical/Surgical History: Denies Medical/Surgical History HEENT History: Reports: None Cardiovascular History: Reports: Other (See Below) Other Cardiovascular History: heart palpitations Respiratory History: Reports: None Gastrointestinal History: Reports: None Genitourinary History: Reports: None OPEN WINDER History: Reports: Musculoskeletal History: Reports: None Neurological History: Reports: None Psychiatric History: Reports: None Endocrine/Metabolic History: Reports: None Hematologic History: Reports: None Oncologic (Cancer) History: Reports: None Dermatologic History: Reports: None - Infectious Disease History Infectious Disease History: Reports: MRSA - Past Surgical History HEENT Surgical History: Reports: Other (See Below) Other HEENT Surgeries/Procedures: ear surgery GI Surgical History: Reports: None - HOME MEDS Home Medications: Home Meds Calcium Carbonate/Vitamin D3 [Calcium 1,000 + D3 Caplet] 1 each PO DAILY [History] Folic Acid 1 mg PO DAILY 08/07/20 [History] - CURRENT (IN HOUSE) MEDS Current Meds: Current Medications Butorphanol Tartrate (Stadol) 1 mg IVPUSH Q1H PRN PRN Reason: Pain Carboprost Tromethamine (Hemabate Ds) 250 mcg IM ASDIRECTED PRN PRN Reason: Post Hemorrhage Lactated Ringer's (Ringers, Lactated) 1,000 mls @ 150 mls/hr IV ASDIRECTED ALONSO Last Admin: 08/09/20 15:45 Dose: 999 mls/hr Documented by: Oxytocin/Sodium Chloride (Oxytocin 30 Unit/500 Ml-Ns) 30 unit in 500 mls @ 500 mls/hr IV TITRATE ALONSO Tranexamic Acid 1,000 mg/ (Sodium Chloride) 110 mls @ 660 mls/hr IV ONETIME PRN PRN Reason: Bleeding Lidocaine HCl (Xylocaine 1%) 50 ml INJECT ONETIME PRN PRN Reason: Laceration repair Methylergonovine Maleate (Methergine) 0.2 mg IM ASDIRECTED PRN PRN Reason: Post Hemorrhage Misoprostol (Cytotec) 200 mcg PO ONETIME PRN PRN Reason: Post Hemorrhage Nalbuphine HCl (Nubain) 10 mg IVPUSH Q1H PRN PRN Reason: Pain (severe 7-10) Sodium Chloride (Saline Flush) 10 ml FLUSH ASDIRECTED PRN PRN Reason: Keep Vein Open Sodium Chloride (Saline Flush) 2.5 ml FLUSH ASDIRECTED PRN PRN Reason: Keep Vein Open Sodium Chloride (Normal Saline) 10 ml IV ASDIRECTED PRN PRN Reason: IV Use Sterile Water (Sterile Water For Irrigation) 1,000 ml IRR ASDIRECTED PRN PRN Reason: delivery Discontinued Medications Fentanyl (Sublimaze) Confirm Administered Dose 100 mcg .ROUTE .STZoomabet-MED ONE Stop: 08/09/20 16:01 Ropivacaine (Naropin 0.2%) Confirm Administered Dose 100 mls @ as directed .ROUTE .STZoomabet-MED ONE Stop: 08/09/20 16:01
--- NOTE | 2020-08-09 16:31 | PCM.PRNOTE ---
- Free Text/Narrative Note: Anes Note Patietn requests epidural for L&D. Sitting positionl level L3-L4 midline approach. Sterile technique. Chloraprep scrub to lumbar area. Sterile fenestrated drape applied. Epidural space easily achieved singel attempt with ease using JANIA technique. JANIA at 4 cm. Cath threaded 5 cm with ease. Sterile clear adhesive dressing applied. Test 1415 3 cc 1.5% lido with epi negative. 1418 10 cc 0.2% ropivicaine with 1 mcg cc fentanyl in slow divided doses. 1422 Pump started wtih 90 cc same solution. Rate is 8 cc hr with 6 cc q 20 min prn bolus. Catherine well. Time with patient [id number] Dhruv Jean ABORIGINAL EDUCATION WORKER COORDINATOR
--- NOTE | 2020-08-09 17:11 | PCM.PRNOTE ---
- Free Text/Narrative Note: Anesthesia Note Patient reports sensory changes to t10 level. Legs are warm and tingly, as well as lower abdomen. However, she reports unsatisfactory analgesia. A sitting dose of 5 cc 2% lido with epi plus 100 mcg fentanyl was administered. She now reports excellent analgesia. Time with patient [phone] Dhruv Jean CRNA
--- NOTE | 2020-08-09 17:36 | PCM.PRNOTE ---
- Free Text/Narrative Note: Anes Note Patient reports incomplete analgesia, despite sensory changes of legs and abdomen. A new epidural was placed under sterile technique. Chloraprep scrub to lumbar area. Sterile fenestrated drape applied. Level L3-L4 midline approach. Epidural space easily achieved single attempt using JANIA technique. JANIA at 4 cm. Cath threaded 5 cm with ease. Sterile clear adhesive dressing applied. Test 1730 3 cc 1.5% lido with epi negative. 1733 load 5 cc 2%lido with epi i slow divided doses. Pump restarted with same solution and rate. Catherine well. Time with patient [id number] Dhruv Jean CRNA
[2020-08-09] MEDS ORDERED: Propofol 200 MG/20 ML SDV ONE (18:25)
[2020-08-09] MEDS ORDERED: ceFAZolin/Dextrose,Iso-Osmotic 2 GM/50 ML Duplex Bag IV ONE (18:27)
[2020-08-09] MEDS ORDERED: fentaNYL 250 MCG/5 ML SDV ONE (18:30)
[2020-08-09] MEDS ORDERED: Phenylephrine 1% 10 MG/ML SDV ONE (18:40)
[2020-08-09] MEDS ORDERED: diphenhydrAMINE 50 MG/ML SDV IVPUSH PRN (19:09)
[2020-08-09] MEDS ORDERED: Acetaminophen/oxyCODONE 325-5 MG Tab PO PRN (19:09)
[2020-08-09] MEDS ORDERED: Oxytocin 10 Units/1 ML SDV IM PRN (19:09)
[2020-08-09] MEDS ORDERED: Bisacodyl 10 MG Supp RECTAL PRN (19:09)
[2020-08-09] MEDS ORDERED: Ondansetron 4 MG/2 ML SDV IVPUSH PRN (19:09)
[2020-08-09] MEDS ORDERED: Lanolin 100% Cream 7 GM Tube TOP PRN (19:09)
[2020-08-09] MEDS ORDERED: Misoprostol 200 MCG Tab RECTAL PRN (19:09)
--- NOTE | 2020-08-09 19:17 | PCM.OPNOTE ---
- General Post-Op/Procedure Note Date of Surgery/Procedure: 08/09/20 Operative Procedure(s): Emergency C/section. Pre Op Diagnosis: IUP 39+ prolapes cord. Post-Op Diagnosis: Same Anesthesia Technique: General LMA Primary Surgeon: Dangelo Moncada Metal Welder: So Falcon EBL in mLs: 1,100 Complications: None Condition: Good
--- NOTE | 2020-08-09 19:25 | PCM.SN.2 ---
- Free Text/Narrative Note: called by ED that OB needed a surgeon for emergency; phone called in at 6.22; arrived in LD [facility], was told by nursing staff, they are fine now; I was relieved;
--- NOTE | 2020-08-09 19:53 | CR ---
Indication: Emergency . X-ray to rule out foreign body. Technique: AP view of the abdomen and pelvis. Comparison: None Findings: The bowel gas pattern is nonobstructive. No radiopaque foreign body identified. Impression: No radiopaque foreign body identified Dictated by Yolanda Torres MD @ Aug 09 2020 7:52PM Signed by Dr. Yolanda Torres @ Aug 09 2020 7:52PM
--- NOTE | 2020-08-09 19:56 | PCM48HPAN ---
Post Anesthesia Note - EVALUATION WITHIN 48HRS OF ANESTHETIC Vital Signs in Normal Range: Yes Patient Participated in Evaluation: Yes Respiratory Function Stable: Yes Airway Patent: Yes Cardiovascular Function Stable: Yes Hydration Status Stable: Yes Pain Control Satisfactory: Yes Nausea and Vomiting Control Satisfactory: Yes Mental Status Recovered: Yes
--- NOTE | 2020-08-09 20:09 | PCM.PRNOTE ---
- Free Text/Narrative Note: 40yo at 39w3d admitted for labor. Leal score 8, cat 1 tracing. Patient was admitted and was laboring expectantly. Patient received an epidural but nurse stated it was not working well as patient was still complaining of pain. When provider arrived, patient appeared in distress, stating she was feeling all her contractions and was very uncomfortable. Plan was to give her IV medicine after vaginal exam and possible AROM, then call anesthesia for revision of the epidural. Patient agreed. Provider performed a vaginal exam. SVE was found to be 5/90/-1 with a bulging membrane. Vertex was well applied to the cervix, so provider performed a AROM. Significant amount of meconium tinged fluid exited, while provider kept fingers inside the cervix. The infant vertex floated up and provider felt the cord prolapsing. At that point FHT was maintained in the 140-130's. Provider tried to push the cord back behind the vertex, but the cord kept prolapsing back. The heart rate started decreasing to the 90's within the next minute or 2, thus provider asked the nurse in the room to call for help and call a stat . Provider kept her fingers inside the cervix while anesthesia staff and extra help were called in. FHT was continuously monitored and ranged 60's to 140's, mostly in the 70's - 90's, and occasionally in the 130-140's. Dr Moncada and anesthesia staff arrived approximately 15mns after and a stat C- section was performed under general anesthesia.
--- NOTE | 2020-08-09 20:15 | PCM.DEL ---
L & D Note - General Info Date of Service: 08/09/20 Mother's Due Date: 08/13/20 - Delivery Note Labor: Spontaneous Delivery Outcome: Livebirth Infant Delivery Method: Emergent Nuchal Cord: Present Anesthesia Type: General Amniotic Fluid Description: Meconium Stained Cord: 3 Vessels Estimated Blood Loss: 1,100 Resuscitation Needed: Yes Byron: Suctioned, Bulb Syringe, Stimulated - General Info Date of Service: 08/09/20 Admission Dx/Problem (Free Text): Patient Status Order with Admit Dx/Problem 08/09/20 15:18 Patient Status [ADT] Routine Admission Diagnosis/Problem Admission Diagnosis/Problem Subjective Update: 40yo at 39w3d admitted for labor. Leal score 8, cat 1 tracing. Covid positive Patient was laboring expectantly. Epidural was placed but not working as expected as patient continue to feel the pain and was moving her lower extremities. AROM performed with subsequent cord prolapse which led to emergency under general anesthesia. - Patient Data Vitals - Most Recent: Last Vital Signs Temp Pulse 91 08/09/20 19:05 Resp 22 H 08/09/20 19:05 BP 105/61 08/09/20 19:05 Pulse Ox 100 08/09/20 19:05 Weight - Most Recent: 83.461 kg Lab Results Last 24 Hours: Laboratory Results - last 24 hr 08/09/20 08/09/20 08/09/20 Range/Units 15:05 15:05 15:10 WBC 9.30 (4.0-11.0) K/uL RBC 4.34 (4.30-5.90) M/uL Hgb 13.5 (12.0-16.0) g/dL Hct 40.4 (36.0-46.0) % MCV 93.1 (80.0-98.0) fL MCH 31.1 (27.0-32.0) pg MCHC 33.4 (31.0-37.0) g/dL RDW Std Deviation 47.5 (28.0-62.0) fl RDW Coeff of Yary 14 (11.0-15.0) % Plt Count 222 (150-400) K/uL MPV 10.30 (7.40-12.00) fL Nucleated RBC % 0.0 /100WBC Nucleated RBCs # 0 K/uL SARS-CoV-2 RNA (HEVER) POSITIVE H (NEGATIVE) Blood Type O POSITIVE Antibody Screen NEGATIVE Med Orders - Current: Current Medications Bisacodyl (Dulcolax) 10 mg RECTAL ONETIME PRN PRN Reason: Constipation Butorphanol Tartrate (Stadol) 1 mg IVPUSH Q1H PRN PRN Reason: Pain Carboprost Tromethamine (Hemabate Ds) 250 mcg IM ASDIRECTED PRN PRN Reason: Post Hemorrhage Diphenhydramine HCl (Benadryl) 25 mg IVPUSH Q6H PRN PRN Reason: Itching or Nausea Docusate Sodium (Colace) 100 mg PO BID [facility] Emollient Ointment (Lansinoh Hpa) 0 gm TOP ASDIRECTED PRN PRN Reason: Sore Nipples Lactated Ringer's (Ringers, Lactated) 1,000 mls @ 125 mls/hr IV ASDIRECTED ALONSO Tranexamic Acid 1,000 mg/ (Sodium Chloride) 110 mls @ 660 mls/hr IV ONETIME PRN PRN Reason: Bleeding Ibuprofen (Motrin) 800 mg PO Q8H PRN PRN Reason: mild pain or fever Ketorolac Tromethamine (Toradol) 30 mg IVPUSH Q6H [facility] Stop: 08/10/20 20:01 Lidocaine HCl (Xylocaine 1%) 50 ml INJECT ONETIME PRN PRN Reason: Laceration repair Methylergonovine Maleate (Methergine) 0.2 mg IM ONETIME PRN PRN Reason: Excessive Vaginal Bleeding Misoprostol (Cytotec) 1,000 mcg RECTAL ONETIME PRN PRN Reason: excessive bleeding Nalbuphine HCl (Nubain) 10 mg IVPUSH Q1H PRN PRN Reason: Pain (severe 7-10) Ondansetron HCl (Zofran) 4 mg IVPUSH Q4H PRN PRN Reason: Nausea/Vomiting Oxycodone/Acetaminophen (Percocet 325-5 Mg) 1 tab PO Q4H PRN PRN Reason: Pain (moderate 4-6) Oxycodone/Acetaminophen (Percocet 325-5 Mg) 2 tab PO Q4H PRN PRN Reason: Pain (moderate 4-6) Oxytocin (Pitocin) 10 unit IM ASDIRECTED PRN PRN Reason: Excessive Vaginal Bleeding Sodium Chloride (Saline Flush) 10 ml FLUSH ASDIRECTED PRN PRN Reason: Keep Vein Open Sodium Chloride (Saline Flush) 2.5 ml FLUSH ASDIRECTED PRN PRN Reason: Keep Vein Open Sodium Chloride (Normal Saline) 10 ml IV ASDIRECTED PRN PRN Reason: IV Use Sterile Water (Sterile Water For Irrigation) 1,000 ml IRR ASDIRECTED PRN PRN Reason: delivery Discontinued Medications Cefazolin Sodium/Dextrose (Ancef) Confirm Administered Dose 2 gm IV .STK-MED ONE Stop: 08/09/20 18:28 Fentanyl (Sublimaze) Confirm Administered Dose 100 mcg .ROUTE .STK-MED ONE Stop: 08/09/20 16:01 Fentanyl (Sublimaze) Confirm Administered Dose 100 mcg .ROUTE .STK-MED ONE Stop: 08/09/20 17:00 Fentanyl (Sublimaze) Confirm Administered Dose 250 mcg .ROUTE .STK-MED ONE Stop: 08/09/20 18:31 Fentanyl (Sublimaze) Confirm Administered Dose 100 mcg .ROUTE .STK-MED ONE Stop: 08/09/20 19:22 Lactated Ringer's (Ringers, Lactated) 1,000 mls @ 150 mls/hr IV ASDIRECTED [facility] Last Admin: 08/09/20 15:45 Dose: 999 mls/hr Documented by: Oxytocin/Sodium Chloride (Oxytocin 30 Unit/500 Ml-Ns) 30 unit in 500 mls @ 500 mls/hr IV TITRATE [facility] Tranexamic Acid 1,000 mg/ (Sodium Chloride) 110 mls @ 660 mls/hr IV ONETIME PRN PRN Reason: Bleeding Ropivacaine (Naropin 0.2%) Confirm Administered Dose 100 mls @ as directed .ROUTE .STK-MED ONE Stop: 08/09/20 16:01 Methylergonovine Maleate (Methergine) 0.2 mg IM ASDIRECTED PRN PRN Reason: Post Hemorrhage Misoprostol (Cytotec) 200 mcg PO ONETIME PRN PRN Reason: Post Hemorrhage Phenylephrine HCl (Augusto-Synephrine) Confirm Administered Dose 10 mg .ROUTE .STK- MED ONE Stop: 08/09/20 18:41 Propofol (Diprivan 20 Ml) Confirm Administered Dose 200 mg .ROUTE .STK-MED ONE Stop: 08/09/20 18:26 - Exam General: Alert, Oriented Extremities: Normal Inspection Psy/Mental Status: Alert, Normal Mood, Anxious - Problem List & Annotations (1) Active labor at term SNOMED Code(s): 72233683 Code(s): GBB9514 - Status: Acute Priority: Low Current Visit: Yes (2) Status post emergency section SNOMED Code(s): 187400014, 758187602, 357211668 Code(s): Z98.891 - HISTORY OF UTERINE SCAR FROM PREVIOUS SURGERY Status: Acute Priority: High Current Visit: Yes (3) Umbilical cord prolapse in labor and delivery, delivered SNOMED Code(s): 082966196, 435786801 Code(s): O69.0XX0 - LABOR AND DELIVERY COMPLICATED BY PROLAPSE OF CORD, UNSP Status: Acute Priority: Medium Current Visit: Yes - Problem List Review Problem List Initiated/Reviewed/Updated: Yes - Assessment Assessment:: 40yo at 39w3d admitted for labor. s/p emergency for cord prolapse, under general anesthesia. Patient was extubated successfully shortly after the . Patient being covid positive, she needs to be in the ICU for 24hrs. - Plan Plan:: Routine ICU unit care and care for patient. Baby girl required resuscitation and intubation. Was extubated shortly after and doing well. Plan to transfer her to higher level of care in [place]
[2020-08-09] MEDS ORDERED: Lactated Ringers 1,000 ML IV ONE (21:15)
[2020-08-09] MEDS: Docusate Sodium 100 MG Cap PO SCH (22:35)
[2020-08-09] MEDS: Lactated Ringers 1,000 ML IV SCH (22:40)
[2020-08-09] MEDS: Ketorolac 30 MG/ML SDV IVPUSH SCH (22:44)
[2020-08-09] MEDS: Acetaminophen/oxyCODONE 325-5 MG Tab PO PRN (22:47)
[2020-08-09 23:02] LABS: BLOOD UREA NITROGEN,BUN 10 mg/dL (7.0-18.0); CARBON DIOXIDE,CO2 19.4 mmol/L (21.0-32.0); CHLORIDE,CL 105 mmol/L (98-107); GLUCOSE RANDOM 138 mg/dL (74-106); POTASSIUM,K 4.9 mmol/L (3.5-5.1); SODIUM,NA 136 mmol/L (136-145)
[2020-08-10] MEDS: Ketorolac 30 MG/ML SDV IVPUSH SCH ×4 (02:50→20:00)
[2020-08-10] MEDS: Lactated Ringers 1,000 ML IV SCH (06:11)
[2020-08-10 06:50] LABS: BLOOD UREA NITROGEN,BUN 8 mg/dL (7.0-18.0); CHLORIDE,CL 107 mmol/L (98-107); GLUCOSE RANDOM 110 mg/dL (74-106); POTASSIUM,K 3.9 mmol/L (3.5-5.1); SODIUM,NA 138 mmol/L (136-145)
--- NOTE | 2020-08-10 07:24 | PN ---
THC Physician - Brief Progress [id number]/10/2020 07:20[facility] Angel Alvarez, [place] - RANULFO (RELL) - CED BRITT I., VICKEY+Date of Service 08/10/2020 07 :20HPI/Events of Note AM labs reviewed:LFTs minimally elevated and unchanged compared to 10 hours altagracia or.Hgb 8.6, was 10.5 ten hours ago.Hemodynamics improved.Plan:Ordered f/up H/H for 14:00 (8 hours).In terventions Minor-Other: abnormal LFTs and H/HElectronically Signed by: GREG CONNELL) on 020 07:23
[2020-08-10] MEDS: Docusate Sodium 100 MG Cap PO SCH ×2 (09:22→20:00)
--- NOTE | 2020-08-10 09:24 | PN ---
THC Physician - Brief Progress [id number]/10/2020 07:34[facility] [place] - MWN (REESEN[facility] - MWN ICUCARRILLO SIRENA ORTIZ I., COVID+Date of Service 08/10/2020 07 :34HPI/Events of Note Chart reviewed. Patient assessed on camera upon arrival to ICU and during the n ight - asleep in bed, in NAD, HR 60s even when MAP below 65.Sirena is a 40 year old lady who underwent e mergent under general anesthesia, for ruptured membranes and bloody show/prolapsed cord. EB L 1L. Pregnanyc history: E coli UTI (treated) and MRSA skin infection. During this admission, COVID screening was positive, patient is not hypoxemic. The pateitn was trsf to ICU post-op for close monit oring and intermittent hypotension.PMH: none.Investigations reviewed.A/P:s/p emergency C-sectionInter mittent hypotesion, responded to IV fluid boluses.Monitor H/H.COVID positive status- strict isolation - monitor for any symptoms or hypoxemia and report at once to MD, as treatment would be required at t hat time.DVT prophylaxis- SCD and ambulate/defer escalation to OB team.Interventions Major-Infection - evaluation and management, Other: hypotension, decline in H/H
--- NOTE | 2020-08-10 10:08 | PCM.PNPP ---
- General Info Date of Service: 08/10/20 Functional Status: Reports: Pain Controlled - Review of Systems General: Reports: No Symptoms HEENT: Reports: No Symptoms Pulmonary: Reports: No Symptoms Cardiovascular: Reports: No Symptoms Gastrointestinal: Reports: No Symptoms Genitourinary: Reports: No Symptoms Musculoskeletal: Reports: No Symptoms Skin: Reports: No Symptoms Neurological: Reports: No Symptoms Psychiatric: Reports: No Symptoms - General Info Date of Service: 08/10/20 - Patient Data Vital Signs - Most Recent: Last Vital Signs Temp 36.6 C 08/10/20 08:00 Pulse 74 08/09/20 21:05 Resp 15 08/10/20 09:00 BP 110/75 08/10/20 09:00 Pulse Ox 98 08/10/20 09:00 Weight - Most Recent: 83.461 kg I&O - Last 24 Hours: Intake & Output 08/09/20 08/10/20 08/10/20 22:59 06:59 14:59 Intake Total 990 1047 Output Total 1100 Balance 990 -53 Lab Results - Last 24 Hours: Laboratory Results - last 24 hr 08/09/20 08/09/20 08/09/20 Range/Units 15:05 15:05 15:10 WBC 9.30 (4.0-11.0) K/uL RBC 4.34 (4.30-5.90) M/uL Hgb 13.5 (12.0-16.0) g/dL Hct 40.4 (36.0-46.0) % MCV 93.1 (80.0-98.0) fL MCH 31.1 (27.0-32.0) pg MCHC 33.4 (31.0-37.0) g/dL RDW Std Deviation 47.5 (28.0-62.0) fl RDW Coeff of Yary 14 (11.0-15.0) % Plt Count 222 (150-400) K/uL MPV 10.30 (7.40-12.00) fL Nucleated RBC % 0.0 /100WBC Nucleated RBCs # 0 K/uL INR APTT (18.6-31.3) SEC Sodium (136-145) mmol/L Potassium (3.5-5.1) mmol/L Chloride (98-107) mmol/L Carbon Dioxide (21.0-32.0) mmol/L BUN (7.0-18.0) mg/dL Creatinine (0.6-1.0) mg/dL Est Cr Clr Drug Dosing mL/min Estimated GFR (MDRD) ml/min Glucose (74-106) mg/dL Calcium (8.5-10.1) mg/dL Total Bilirubin (0.2-1.0) mg/dL AST (15-37) IU/L ALT (14-63) IU/L Alkaline Phosphatase (46-116) U/L Total Protein (6.4-8.2) g/dL Albumin (3.4-5.0) g/dL Globulin (2.6-4.0) g/dL Albumin/Globulin Ratio (0.9-1.6) SARS-CoV-2 RNA (HEVER) POSITIVE H (NEGATIVE) Blood Type O POSITIVE Antibody Screen NEGATIVE 08/09/20 08/09/20 08/09/20 Range/Units 22:30 22:30 22:30 WBC 13.69 H (4.0-11.0) K/uL RBC 3.49 L (4.30-5.90) M/uL Hgb 10.6 L (12.0-16.0) g/dL Hct 32.7 L (36.0-46.0) % MCV 93.7 (80.0-98.0) fL MCH 30.4 (27.0-32.0) pg MCHC 32.4 (31.0-37.0) g/dL RDW Std Deviation 48.2 (28.0-62.0) fl RDW Coeff of Yary 14 (11.0-15.0) % Plt Count 192 (150-400) K/uL MPV 10.10 (7.40-12.00) fL Nucleated RBC % 0.0 /100WBC Nucleated RBCs # 0 K/uL INR 1.02 APTT (18.6-31.3) SEC Sodium 136 (136-145) mmol/L Potassium 4.9 (3.5-5.1) mmol/L Chloride 105 (98-107) mmol/L Carbon Dioxide 19.4 L (21.0-32.0) mmol/L BUN 10 (7.0-18.0) mg/dL Creatinine 0.6 (0.6-1.0) mg/dL Est Cr Clr Drug Dosing 103.10 mL/min Estimated GFR (MDRD) > 60.0 ml/min Glucose 138 H (74-106) mg/dL Calcium 8.2 L (8.5-10.1) mg/dL Total Bilirubin 0.5 (0.2-1.0) mg/dL AST 38 H (15-37) IU/L ALT 14 (14-63) IU/L Alkaline Phosphatase 109 (46-116) U/L Total Protein 5.5 L (6.4-8.2) g/dL Albumin 2.0 L (3.4-5.0) g/dL Globulin 3.5 (2.6-4.0) g/dL Albumin/Globulin Ratio 0.6 L (0.9-1.6) SARS-CoV-2 RNA (HEVER) (NEGATIVE) Blood Type Antibody Screen 08/09/20 08/10/20 08/10/20 Range/Units 22:30 06:18 06:18 WBC 10.30 (4.0-11.0) K/uL RBC 2.79 L (4.30-5.90) M/uL Hgb 8.6 L (12.0-16.0) g/dL Hct 25.9 L (36.0-46.0) % MCV 92.8 (80.0-98.0) fL MCH 30.8 (27.0-32.0) pg MCHC 33.2 (31.0-37.0) g/dL RDW Std Deviation 47.8 (28.0-62.0) fl RDW Coeff of Yary 14 (11.0-15.0) % Plt Count 177 (150-400) K/uL MPV 10.00 (7.40-12.00) fL Nucleated RBC % 0.0 /100WBC Nucleated RBCs # 0 K/uL INR APTT 20.7 (18.6-31.3) SEC Sodium 138 (136-145) mmol/L Potassium 3.9 (3.5-5.1) mmol/L Chloride 107 (98-107) mmol/L Carbon Dioxide 21.0 (21.0-32.0) mmol/L BUN 8 (7.0-18.0) mg/dL Creatinine 0.5 L (0.6-1.0) mg/dL Est Cr Clr Drug Dosing 123.72 mL/min Estimated GFR (MDRD) > 60.0 ml/min Glucose 110 H (74-106) mg/dL Calcium 7.9 L (8.5-10.1) mg/dL Total Bilirubin 0.4 (0.2-1.0) mg/dL AST 40 H (15-37) IU/L ALT 13 L (14-63) IU/L Alkaline Phosphatase 81 (46-116) U/L Total Protein 4.8 L (6.4-8.2) g/dL Albumin 1.7 L (3.4-5.0) g/dL Globulin 3.1 (2.6-4.0) g/dL Albumin/Globulin Ratio 0.6 L (0.9-1.6) SARS-CoV-2 RNA (HEVER) (NEGATIVE) Blood Type Antibody Screen Med Orders - Current: Current Medications Bisacodyl (Dulcolax) 10 mg RECTAL ONETIME PRN PRN Reason: Constipation Butorphanol Tartrate (Stadol) 1 mg IVPUSH Q1H PRN PRN Reason: Pain Carboprost Tromethamine (Hemabate Ds) 250 mcg IM ASDIRECTED PRN PRN Reason: Post Hemorrhage Diphenhydramine HCl (Benadryl) 25 mg IVPUSH Q6H PRN PRN Reason: Itching or Nausea Docusate Sodium (Colace) 100 mg PO BID [facility] Last Admin: 08/10/20 09:22 Dose: 100 mg Documented by: Emollient Ointment (Lansinoh Hpa) 0 gm TOP ASDIRECTED PRN PRN Reason: Sore Nipples Lactated Ringer's (Ringers, Lactated) 1,000 mls @ 125 mls/hr IV ASDIRECTED [facility] Last Admin: 08/10/20 06:11 Dose: 125 mls/hr Documented by: Tranexamic Acid 1,000 mg/ (Sodium Chloride) 110 mls @ 660 mls/hr IV ONETIME PRN PRN Reason: Bleeding Ibuprofen (Motrin) 800 mg PO Q8H PRN PRN Reason: mild pain or fever Ketorolac Tromethamine (Toradol) 30 mg IVPUSH Q6H [facility] Stop: 08/10/20 20:01 Last Admin: 12/10/20 09:22 Dose: 30 mg Documented by: Lidocaine HCl (Xylocaine 1%) 50 ml INJECT ONETIME PRN PRN Reason: Laceration repair Methylergonovine Maleate (Methergine) 0.2 mg IM ONETIME PRN PRN Reason: Excessive Vaginal Bleeding Misoprostol (Cytotec) 1,000 mcg RECTAL ONETIME PRN PRN Reason: excessive bleeding Nalbuphine HCl (Nubain) 10 mg IVPUSH Q1H PRN PRN Reason: Pain (severe 7-10) Ondansetron HCl (Zofran) 4 mg IVPUSH Q4H PRN PRN Reason: Nausea/Vomiting Oxycodone/Acetaminophen (Percocet 325-5 Mg) 1 tab PO Q4H PRN PRN Reason: Pain (moderate 4-6) Last Admin: 08/09/20 22:47 Dose: 1 tab Documented by: Oxycodone/Acetaminophen (Percocet 325-5 Mg) 2 tab PO Q4H PRN PRN Reason: Pain (moderate 4-6) Oxytocin (Pitocin) 10 unit IM ASDIRECTED PRN PRN Reason: Excessive Vaginal Bleeding Sodium Chloride (Saline Flush) 10 ml FLUSH ASDIRECTED PRN PRN Reason: Keep Vein Open Sodium Chloride (Saline Flush) 2.5 ml FLUSH ASDIRECTED PRN PRN Reason: Keep Vein Open Sodium Chloride (Normal Saline) 10 ml IV ASDIRECTED PRN PRN Reason: IV Use Sterile Water (Sterile Water For Irrigation) 1,000 ml IRR ASDIRECTED PRN PRN Reason: delivery Discontinued Medications Cefazolin Sodium/Dextrose (Ancef) Confirm Administered Dose 2 gm IV .STK-MED ONE Stop: 08/09/20 18:28 Fentanyl (Sublimaze) Confirm Administered Dose 100 mcg .ROUTE .STK-MED ONE Stop: 08/09/20 16:01 Fentanyl (Sublimaze) Confirm Administered Dose 100 mcg .ROUTE .STK-MED ONE Stop: 08/09/20 17:00 Fentanyl (Sublimaze) Confirm Administered Dose 250 mcg .ROUTE .STK-MED ONE Stop: 08/09/20 18:31 Fentanyl (Sublimaze) Confirm Administered Dose 100 mcg .ROUTE .STK-MED ONE Stop: 08/09/20 19:22 Lactated Ringer's (Ringers, Lactated) 1,000 mls @ 150 mls/hr IV ASDIRECTED [facility] Last Admin: 08/09/20 15:45 Dose: 999 mls/hr Documented by: Oxytocin/Sodium Chloride (Oxytocin 30 Unit/500 Ml-Ns) 30 unit in 500 mls @ 500 mls/hr IV TITRATE [facility] Tranexamic Acid 1,000 mg/ (Sodium Chloride) 110 mls @ 660 mls/hr IV ONETIME PRN PRN Reason: Bleeding Ropivacaine (Naropin 0.2%) Confirm Administered Dose 100 mls @ as directed .ROUTE .STK-MED ONE Stop: 08/09/20 16:01 Lactated Ringer's (Ringers, Lactated) 1,000 mls @ 999 mls/hr IV BOLUS ONE Stop: 08/09/20 22:15 Last Admin: 08/09/20 21:28 Dose: 999 mls/hr Documented by: Methylergonovine Maleate (Methergine) 0.2 mg IM ASDIRECTED PRN PRN Reason: Post Hemorrhage Misoprostol (Cytotec) 200 mcg PO ONETIME PRN PRN Reason: Post Hemorrhage Phenylephrine HCl (Augusto-Synephrine) Confirm Administered Dose 10 mg .ROUTE .STK- MED ONE Stop: 08/09/20 18:41 Propofol (Diprivan 20 Ml) Confirm Administered Dose 200 mg .ROUTE .STK-MED ONE Stop: 08/09/20 18:26 - Infant Interaction Disposition, : Not Applicable Support Person: Other (see below) - Recovery Exam Fundal Tone: Firm Fundal Level: 1 Fingerbreadths Above Umbilicus Fundal Placement: Midline Lochia Amount: Small, Moderate Lochia Color: Rubra/Red Perineum Description: Intact, Minimal Bruising/Swelling Episiotomy/Laceration: None Bladder Status: Indwelling Catheter in Place Urinary Elimination: Indwelling Catheter - Exam General: Alert, Oriented HEENT: Pupils Equal Neck: Supple Lungs: Clear to Auscultation, Normal Respiratory Effort Cardiovascular: Regular Rate, Regular Rhythm GI/Abdominal Exam: Normal Bowel Sounds, Soft, Non-Tender, No Organomegaly, No Distention, No Abnormal Bruit, No Mass, Pelvis Stable Extremities: Normal Inspection, Normal Range of Motion, Non-Tender, No Pedal Edema, Normal Capillary Refill Skin: Warm, Dry, Intact Wound/Incisions: Healing Well Neurological: No New Focal Deficit Psy/Mental Status: Alert, Normal Affect, Normal Mood - Problem List Review Problem List Initiated/Reviewed/Updated: Yes - My Orders Last 24 Hours: My Active Orders 08/09/20 15:05 RPR (SYPHILIS SERO) W/ RFLX [REF] Routine 08/09/20 15:18 Heart Tones [RC] CONTINUOUS Non Stress Test [RC] PER UNIT ROUTINE May Shower [RC] ASDIRECTED Notify Provider [RC] PRN Up ad Drea [RC] ASDIRECTED Vital Signs [RC] Q4H Butorphanol [Stadol] 1 mg IVPUSH Q1H PRN Carboprost Tromethamine [Hemabate DS] 250 mcg IM ASDIRECTED PRN Lidocaine 1% [Xylocaine 1%] 50 ml INJECT ONETIME PRN Nalbuphine [Nubain] 10 mg IVPUSH Q1H PRN Sodium Chloride 0.9% [Normal Saline] 10 ml IV ASDIRECTED PRN Sodium Chloride 0.9% [Saline Flush] 10 ml FLUSH ASDIRECTED PRN Sodium Chloride 0.9% [Saline Flush] 2.5 ml FLUSH ASDIRECTED PRN Water For Irrigation,Sterile [Sterile Water for Irrigation] 1,000 ml IRR ASDIRECTED PRN Scalp Electrode [WOMSER] Per Unit Routine Peripheral IV Insertion Adult [OM.PC] Routine Resuscitation Status Routine 08/09/20 19:09 Patient Status [ADT] Routine Ambulate [RC] PER UNIT ROUTINE Communication Order [RC] PER UNIT ROUTINE Communication Order [RC] PER UNIT ROUTINE Communication Order [RC] Per Unit Routine May Shower [RC] ASDIRECTED RT Incentive Spirometry [RC] Q2HWA Acetaminophen/oxyCODONE [Percocet 325-5 MG] 1 tab PO Q4H PRN Acetaminophen/oxyCODONE [Percocet 325-5 MG] 2 tab PO Q4H PRN Lanolin [Lansinoh HPA] See Dose Instructions TOP ASDIRECTED PRN Methylergonovine [Methergine] 0.2 mg IM ONETIME PRN Ondansetron [Zofran] 4 mg IVPUSH Q4H PRN Oxytocin [Pitocin] 10 unit IM ASDIRECTED PRN Tranexamic Acid [Cyklokapron] 1,000 mg Sodium Chloride 0.9% [Normal Saline] 10 0 ml IV ONETIME bisacodyL [Dulcolax] 10 mg RECTAL ONETIME PRN diphenhydrAMINE [Benadryl] 25 mg IVPUSH Q6H PRN miSOPROStoL [Cytotec] 1,000 mcg RECTAL ONETIME PRN Assess Lochia [WOMSER] Per Unit Routine Assess Uterine Involution [WOMSER] Per Unit Routine Breast Pump [WOMSER] Per Unit Routine Peripheral IV Discontinue [OM.PC] Routine Sequential Compression Device [OM.PC] Per Unit Routine 08/09/20 19:12 Antiembolic Devices [RC] Q12H 08/09/20 19:15 Lactated Ringers [Ringers, Lactated] 1,000 ml IV ASDIRECTED 08/09/20 20:00 Ketorolac [Toradol] 30 mg IVPUSH Q6H 08/09/20 21:00 Docusate Sodium [Colace] 100 mg PO BID 08/10/20 09:31 Transfer Patient (Change bed) [ADT] Routine Remove Urinary Catheter [Urinary Catheter Removal] [RC] PER UNIT ROUTINE 08/10/20 10:02 Discontinue Telemetry Monitoring [Cardiac Monitoring Discontinue] [RC] Click to Edit 08/10/20 Lunch Regular Diet [DIET] 08/11/20 02:00 Ibuprofen [Motrin] 800 mg PO Q8H PRN - Assessment Assessment:: 40yo at 39w3d admitted for labor. s/p emergency for cord prolapse, under general anesthesia. Patient was extubated successfully shortly after the . Patient being covid positive, she needs to be in the ICU for 24hrs. - Plan Plan:: Routine ICU unit care and care for patient. Baby girl required resuscitation and intubation. Was extubated shortly after and doing well. Plan to transfer her to higher level of care in [place]
--- NOTE | 2020-08-10 10:36 | PCM48HPAN ---
Post Anesthesia Note - EVALUATION WITHIN 48HRS OF ANESTHETIC Vital Signs in Normal Range: Yes Patient Participated in Evaluation: Yes Respiratory Function Stable: Yes Airway Patent: Yes Cardiovascular Function Stable: Yes Hydration Status Stable: Yes Pain Control Satisfactory: Yes Nausea and Vomiting Control Satisfactory: Yes Mental Status Recovered: Yes Vital Signs: Last Vital Signs Temp 36.6 C 08/10/20 08:00 Pulse 74 08/09/20 21:05 Resp 15 08/10/20 09:00 BP 110/75 08/10/20 09:00 Pulse Ox 98 08/10/20 09:00 - COMMENTS/OBSERVATIONS Free Text/Narrative:: OIL AGENT, was present during the evaluation. The patient has no complaints at this time related to neuraxial and general anesthesia. There were no apparent anesthetic complications at this time. patient doing overall, and will remain in icu per dr. gibbs's orders.
--- NOTE | 2020-08-10 13:21 | OR ---
SURGEON: Dangelo Moncada MD DATE OF PROCEDURE: 08/09/2020 PREOPERATIVE DIAGNOSIS: Intrauterine at 39+ weeks and emergency low transverse section through a midline skin incision for prolapsed cord. POSTOPERATIVE DIAGNOSIS: Intrauterine at 39+ weeks and emergency low transverse section through a midline skin incision for prolapsed cord. PRIMARY SURGEON: Dangelo Moncada MD MANAGER MENTAL HEALTH: So Gunn MD ANESTHESIA: General, Dhruv Ted, GAS ENGINE REPAIRER. ESTIMATED BLOOD LOSS: 1200 mL. COMPLICATIONS: None. INDICATIONS FOR SURGERY: This patient is para 1-0-0-1. She is admitted in active labor. She is a COVID positive. At the time of admission, she was dilated to 5 to 6 cm, and she was examined by Dr. Gunn. She was attempting to do rupture of the membrane, which she achieved, but after that, according to Dr. Gunn, the head had moved, and she had a prolapsed cord. An emergency action was initiated, and I was called. By the time of my arrival, the patient was in the operative room, and I helped move her to the operative table. The patient had just had epidural, but it was not adequate level, so the patient was put to sleep, and we did quick abdominal scrubs, and we proceeded to commence emergency section. All the resuscitating team is here, the phone triage specialist is here. PROCEDURE IN DETAIL: The patient was in the OR. After adequate level of general anesthesia, the patient quickly prepped. A midline incision from beneath the umbilicus to the symphysis pubis was done. Dain's fascia and rectus fascia were opened in direction of the incision. The peritoneal cavity was entered. Then, low transverse uterine incision was done, extended manually with the hand. The fetus was delivered immediately. Cord clamped and the fetus was handed to the resuscitating team for resuscitation. For detail of the score and the weight, please refer to the resuscitating team report. The placenta delivered spontaneous, complete, and intact and then I delivered the uterus out of the abdomen and repair of the lower uterine segment was done with 2-0 Vicryl continuous interlocking. On inspection of the lower uterine segment, there was no oozing, no bleeding. Then, the uterus was placed back in the peritoneal cavity and that cavity evacuated completely from all blood and blood clot and closed in layers in mass closure. The first two layers, the fascia and the peritoneum, with #1 PDS double strand continuous, the Dain fascia with 3-0 Vicryl continuous, and the skin with skin clips and staple. Instrument and sponge count was correct. The patient tolerated the procedure well, went to recovery room in stable general condition. SRAVANI MELVIN /[id number]
--- NOTE | 2020-08-10 19:10 | OR ---
SURGEON: So Gunn MD DATE OF PROCEDURE: 08/10/2020 INDICATIONS FOR SURGERY: Repeat , history of prior . PREOPERATIVE DIAGNOSIS: Term , scheduled repeat section. POSTOPERATIVE DIAGNOSIS: Term , scheduled repeat section. OPERATION: section. PRIMARY SURGEON: So Gnun MD ASSISTANTS: Dangelo Moncada MD, and Velvet Zambrano CNM ANESTHESIA: Spinal. ESTIMATED BLOOD LOSS: 300. URINE OUTPUT: Adequate. DRAIN AND PACK: [place] catheter draining clear urine. SPECIMEN: None. DELIVERY DETAILS: Livebirth. Gender, male. weight 3610 g. score of one minute 9 and five minutes 9. Placenta delivery method, spontaneous. DELIVERY COMPLICATIONS: None. TECHNIQUE: Sirena Delgado was taken to the operating room. She was then transferred to the operating table and placed in the dorsal supine position with a leftward tilt. After adequate anesthesia was confirmed, she was prepped and draped in the usual sterile fashion. A time-out was completed. With IV fluid running and Ireland catheter draining, a Pfannenstiel skin incision was made. The incision was carried down with the Bovie cautery through the subcutaneous tissue to the underlying rectus fascia. The rectus fascia was incised in the middle and extended laterally with Mireles scissors. The underlying rectus muscles were dissected off the fascia. The rectus muscles were then in the midline and the parietal peritoneum was opened. A self-retaining bladder blade and Ocampo retractor were placed. The lower uterine segment was identified in the surgical field and the lower uterine segment was incised in a transverse fashion. The incision was extended laterally with a cephalocaudal traction. The 's vertex was delivered atraumatically followed by the remainder of the . The cord was clamped and cut, and the infant was handed off to the pediatric staff. Cord gas was collected. The placenta was delivered spontaneously. The uterus was cleared of all clots and debris. The uterine incision was reapproximated in a running locked stitch fashion utilizing a 0 Vicryl. A second running stitch imbricating the first layer was performed utilizing another 0 Vicryl. Hemostasis was excellent. The gutter was cleared of all clots and debris. The bladder blade and Ocampo retractor were removed. The subfascial layer was found to be hemostatic. The peritoneum was closed with a running stitch fashion utilizing 3-0 Vicryl. The rectus fascia was reapproximated with a PDS in a running stitch fashion. Subcutaneous tissue was irrigated and closed with a running stitch utilizing a 3-0 Vicryl. Hemostasis was assured. The skin was then closed with a 4-0 Monocryl in a subcuticular fashion. All sponges, needle, and instrument counts were correct per the OR nursing staff at the end of the procedure. The patient was taken to the recovery room in stable condition. The patient had received 3 g of Ancef prior to the procedure. PARMINDER MELVIN /[id number]
[2020-08-11] MEDS ORDERED: Ibuprofen 800 MG Tab PO PRN (02:00)
[2020-08-11] MEDS: Acetaminophen/oxyCODONE 325-5 MG Tab PO PRN ×3 (03:35→14:53)
[2020-08-11] MEDS ORDERED: Docusate Sodium 100 MG Cap PO SCH (09:00)
== END 2020-08-11 15:00 | disposition home or self-care (01) | DRG 786 ==
LOC: MW.OB 12:04 → MW.OBCHECK 12:04 → MW.OB 15:18 → OBSVTOIN 19:09 → MW.ICU 19:10 → MW.OB 08-10 18:21
PROVIDERS: ADMIT Obstetrics & Gynecology; ATTEND Obstetrics & Gynecology
PROC: 10D00Z1 Extraction of Products of Conception, Low, Open Approach (ICD-10-PCS; principal; 2020-08-09)
PROC: 10907ZC Drainage of Amniotic Fluid, Therapeutic from Products of Conception, Via Natural or Artificial Opening (ICD-10-PCS; 2020-08-09)
PROC: 8E0ZXY6 Isolation (ICD-10-PCS; 2020-08-09)
PROC: 3E0R3BZ Introduction of Anesthetic Agent into Spinal Canal, Percutaneous Approach (ICD-10-PCS; 2020-08-09)
PROC: 00HU33Z Insertion of Infusion Device into Spinal Canal, Percutaneous Approach (ICD-10-PCS; 2020-08-09)
DX: O98.52 Other viral diseases complicating childbirth (principal); U07.1 COVID-19; O69.81X0 Labor and delivery complicated by cord around neck, without compression, not applicable or unspecified; O69.0XX0 Labor and delivery complicated by prolapse of cord, not applicable or unspecified; Z3A.39 39 weeks gestation of pregnancy; Z37.0 Single live birth; I95.9 Hypotension, unspecified
CPT/HCPCS: 01967; 01968; 36415; 59025; 74018; 74018-26; 80053; 85014; 85018; 85027; 85610; 85730; 86592; 86850; 86900; 86901; 88307; A9270-GY; J1885; J2370; J2704; J3010; J7120; U0002

== ENCOUNTER 2021-07-23 16:39 | Emergency (ER) | payer SELFPAY ==
[2021-07-23] MEDS ORDERED: Diclofenac Sodium 75 MG Tab.EC PO ONE (18:33)
--- NOTE | 2021-07-23 19:30 | CR ---
HISTORY: Pain. TECHNIQUE: Three views of the lumbar spine. COMPARISON: No prior. FINDINGS: Five lumbar type vertebral bodies. Lumbar vertebral body height is maintained. Intervertebral disc height is maintained. There is no acute fracture or malalignment. IMPRESSION: 1. No acute fracture or malalignment. 2. Disc height and vertebral body height maintained. Dictated by Ranjit Santos MD @ 07/23/2021 7:28:51 PM (Electronically Signed)
--- NOTE | 2021-07-23 20:17 | EDM.PDOC ---
ED HPI GENERAL MEDICAL PROBLEM - General Chief Complaint: Back Pain or Injury Stated Complaint: BACK PAIN, HANDS GOING NUMB Time Seen by Provider: 07/23/21 18:19 Source of Information: Reports: Patient History Limitations: Reports: No Limitations - History of Present Illness INITIAL COMMENTS - FREE TEXT/NARRATIVE: HISTORY AND PHYSICAL: History of present illness: Patient is an otherwise healthy 41-year-old female who presents emergency room today with concern of low back pain that has been ongoing for the past 2 weeks. Patient states that typically diclofenac but states that she does not have any more of this available but did take a dose of ibuprofen earlier today. Patient denies any loss or retention of bowel bladder function or saddle anesthesia. Patient states that she has some occasional pins and needle sensation of her left hand but states that she has not had that in a couple days and was afraid it was from her low back pain so came here to the emergency room for further evaluation. Patient states that she has not sexually active so is not and denies any other associated symptoms. Patient denies fever, chills, chest pain, shortness of breath, or cough. Denies headache, neck stiff ness, change in vision, syncope, or near syncope. Denies nausea, vomiting, abdominal pain, diarrhea, constipation, or dysuria. Has not noted any blood in urine or stool. Patient has been eating and drinking appropriately. Review of systems: As per history of present illness and below otherwise all systems reviewed and negative. Past medical history: As per history of present illness and as reviewed below otherwise noncontributory. Surgical history: As per history of present illness and as reviewed below otherwise noncontributory. Social history: See social history for further information Family history: As per history of present illness and as reviewed below otherwise noncontributory. Physical exam: General: Patient is alert, oriented, and in no acute distress. Patient sitting comfortably on exam table. Vitals stable and reviewed by me. HEENT: Atraumatic, normocephalic, pupils equal and reactive bilaterally, negative for conjunctival pallor or scleral icterus, mucous membranes moist, throat clear, neck supple, nontender, trachea midline. No drooling or trismus noted. No meningeal signs. No hot potato voice noted. Lungs: Clear to auscultation, breath sounds equal bilaterally, chest nontender. Heart: S1S2, regular rate and rhythm without overt murmur Abdomen: Soft, nondistended, nontender. Negative for masses or hepatosplenomeg carter. Negative for costovertebral tenderness. Pelvis: Stable nontender. Genitourinary: Deferred. Rectal: Deferred. Skin: Intact, warm, dry. No lesions or rashes noted. Extremities: No obvious deformity of the complete spine. No step-offs, crepitus, or point tenderness to palpation of the complete spine. Patient has full range of motion of the complete spine without pain or difficulty. When asking patient where her pain is, she does point to the lower lumbar spine with no physical exam findings to explain her pain. Patient has full range of motion of all extremities without pain or difficulty. Intact sensation to light and deep touch of the complete bilateral upper and lower extremities. Negative Phalen/Tinel. Radial pulses are grossly intact bilaterally with capillary refill less than 2 seconds. Otherwise, atraumatic, negative for cords or calf pain. Neurovascular unremarkable. Neuro: Awake, alert, oriented. Cranial nerves II through XII unremarkable. Cerebellum unremarkable. Motor and sensory unremarkable throughout. Exam nonfocal. Medical Decision Making: Patient is an otherwise healthy 41-year-old female who presents emergency room today with concern of 2-week history of low back pain with associated intermittent left upper extremity paresthesia, not currently happening today, last occurred a few days ago. Upon arrival to the ED, patient is vitally stable and well-appearing on exam. Exam is otherwise unremarkable with neurovascularly intact. Lumbar spine x-ray shows no acute fracture or malalignment. Disc height and vertebral body height maintained. Urinalysis does show trace leukocyte Estrace with 90-100 red blood cells (patient is currently on her menstrual cycle) and 5-10 white blood cells. Negative nitrite. Possible early urinary tract infection. Will treat with antibiotics. Upon reevaluation of patient, she remains vitally stable and has improvement of her back pain with therapeutics given today in the emergency room. Strict return precautions thoroughly discussed with patient. Discussed importance for follow-up with a primary care provider. Voices understanding and is agreeable to plan of care. Denies any further questions or concerns at this time. Diagnostics: Lumbar spine x-ray, urinalysis, urine hCG, urine culture Therapeutics: Diclofenac Prescription: Diclofenac, Flexeril, Keflex Impression: Low back pain Urinary tract infection, early Plan: 1. When resting please lay on a flat firm surface. Limit your mobility to prevent muscle stiffness. Get up to ambulate/move around/gentle stretching multiple times throughout the day. May alternate heat and ice to painful areas. 3. Tylenol as needed for back pain. Otherwise, take the prescribed Flexeril and diclofenac as directed. Diclofenac as an anti-inflammatory medication so do not take any additional NSAIDs with this medication, such as naproxen, ibuprofen, or Aleve. Flexeril, this medication may cause drowsiness, so do not take it while driving or needing to be functioning outside of the home. Your medication has been sent to [place] pharmacy. 3. Follow-up with your primary care provider as discussed. Return to the ED as needed and as discussed. Definitive disposition and diagnosis as appropriate pending reevaluation and review of above. Back Pain Score (Numeric/FACES): 8 - Related Data Allergies Allergy/AdvReac Type Severity Reaction Status Date / Time No Known Allergies Allergy Verified 07/23/21 17:24 Home Meds: Home Meds Cyclobenzaprine [Flexeril] 10 mg PO TID PRN #9 tab 07/23/21 [Rx] Diclofenac Sodium [Voltaren] 75 mg PO BIDMEALS PRN #15 tab.cr 07/23/21 [Rx] cephALEXin [Keflex] 500 mg PO Q8H 5 Days #15 cap 07/23/21 [Rx] Past Medical History - Past Health History Medical/Surgical History: Denies Medical/Surgical History HEENT History: Reports: None Cardiovascular History: Reports: Other (See Below) Other Cardiovascular History: heart palpitations Respiratory History: Reports: None Gastrointestinal History: Reports: None Genitourinary History: Reports: None 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: Musculoskeletal History: Reports: None Neurological History: Reports: None Psychiatric History: Reports: None Endocrine/Metabolic History: Reports: None Hematologic History: Reports: None Oncologic (Cancer) History: Reports: None Dermatologic History: Reports: None - Infectious Disease History Infectious Disease History: Reports: MRSA - Past Surgical History HEENT Surgical History: Reports: Other (See Below) Other HEENT Surgeries/Procedures: ear surgery GI Surgical History: Reports: None Social & Family History - Family History Family Medical History: No Pertinent Family History - Tobacco Use Second Hand Smoke Exposure: No - Caffeine Use Caffeine Use: Reports: None - Recreational Drug Use Recreational Drug Use: No ED ROS GENERAL - Review of Systems Review Of Systems: Comprehensive ROS is negative, except as noted in HPI. ED EXAM, GENERAL - Physical Exam Exam: See Below (see dictation) Course - Vital Signs Last Recorded V/S: Last Vital Signs Temp 97.6 F 07/23/21 17:21 Pulse 79 07/23/21 20:33 Resp 17 07/23/21 20:33 BP 122/71 07/23/21 20:33 Pulse Ox 98 07/23/21 20:33 - Orders/Labs/Meds Orders: Active Orders 24 hr Category Date Time Status CULTURE URINE [MREF] Stat Lab 07/23/21 19:25 Received Labs: Laboratory Tests 07/23/21 07/23/21 Range/Units 19:25 19:25 Urine Color YELLOW Urine Appearance CLOUDY Urine pH 6.0 (5.0-8.0) Ur Specific [place] >= 1.030 (1.001-1.035) Urine Protein NEGATIVE (NEGATIVE) mg/dL Urine Glucose (UA) NEGATIVE (NEGATIVE) mg/dL Urine Ketones TRACE H (NEGATIVE) mg/dL Urine Occult Blood LARGE H (NEGATIVE) Urine Nitrite NEGATIVE (NEGATIVE) Urine Bilirubin NEGATIVE (NEGATIVE) Urine Urobilinogen 1.0 (<2.0) EU/dL Ur Leukocyte Esterase TRACE H (NEGATIVE) Urine RBC 90-100 (0-2/HPF) Urine WBC 5-10 (0-5/HPF) Ur Epithelial Cells FEW (NONE-FEW) Calcium Oxalate Crystal FEW (NEGATIVE) Urine Bacteria RARE (NEGATIVE) Urine Mucus MODERATE (NONE-MOD) Urine HCG, Qual NEGATIVE (NEGATIVE) Meds: Medications Discontinued Medications Generic Name Dose Route Start Last Admin Trade Name Freq PRN Reason Stop Dose Admin Diclofenac Sodium 75 mg 07/23/21 18:33 07/23/21 19:31 Diclofenac Sodium 75 Mg Tab.Ec PO 07/23/21 18:34 75 mg ONETIME ONE Administration Departure - Departure Time of Disposition: 20:27 Disposition: Home, Self-Care 01 Clinical Impression: Low back pain, Urinary tract infection - Discharge Information Prescriptions: Cyclobenzaprine [Flexeril] 10 mg PO TID PRN #9 tab PRN Reason: Spasms cephALEXin [Keflex] 500 mg PO Q8H 5 Days #15 cap Diclofenac Sodium [Voltaren] 75 mg PO BIDMEALS PRN #15 tab.cr PRN Reason: Pain Instructions: Acute Back Pain, Adult Referrals: PCP,None [Primary Care Provider] - Forms: ED Department Discharge Additional Instructions: The following information is given to patients seen in the emergency department who are being discharged to home. This information is to outline your options for follow-up care. We provide all patients seen in our emergency department with a follow-up referral. The need for follow-up, as well as the timing and circumstances, are variable depending upon the specifics of your emergency department visit. If you don't have a primary care physician on staff, we will provide you with a referral. We always advise you to contact your personal physician following an emergency department visit to inform them of the circumstance of the visit and for follow-up with them and/or the need for any referrals to a consulting specialist. The emergency department will also refer you to a specialist when appropriate. This referral assures that you have the opportunity for follow-up care with a specialist. All of these measure are taken in an effort to provide you with optimal care, which includes your follow-up. Under all circumstances we always encourage you to contact your private physician who remains a resource for coordinating your care. When calling for follow-up care, please make the office aware that this follow-up is from your re cent emergency room visit. If for any reason you are refused follow-up, please contact the [facility] Emergency Department at and asked to speak to the emergency department charge nurse. [facility] [address] [place] [id number] [address] 1. When resting please lay on a flat firm surface. Limit your mobility to pr event muscle stiffness. Get up to ambulate/move around/gentle stretching multiple times throughout the day. May alternate heat and ice to painful areas. 2. Tylenol as needed for back pain. Otherwise, take the prescribed Flexeril and diclofenac as directed. Diclofenac as an anti-inflammatory medication so do not take any additional NSAIDs with this medication, such as naproxen, ibuprofen, or Aleve. Flexeril, this medication may cause drowsiness, so do not take it while driving or needing to be functioning outside of the home. Your medication has been sent to [place] pharmacy. 3. Follow-up with your primary care provider as discussed. Return to the ED as needed and as discussed. Sepsis Event Note (ED) - Evaluation Sepsis Screening Result: No Definite Risk - Focused Exam Vital Signs: Vital Signs Temp Pulse Resp BP Pulse Ox 07/23/21 20:33 79 17 122/71 98 07/23/21 17:21 97.6 F 78 20 120/67 97 - My Orders Last 24 Hours: My Active Orders 07/23/21 19:25 CULTURE URINE [MREF] Stat - Assessment/Plan Last 24 Hours: My Active Orders 07/23/21 19:25 CULTURE URINE [MREF] Stat
== END 2021-07-23 20:39 | disposition home or self-care (01) ==
LOC: MW.ED 16:39
DX: N39.0 Urinary tract infection, site not specified (principal); M54.50 Low back pain, unspecified
CPT/HCPCS: 72100; 81001; 81025; 87086; 99283; A9270

== ENCOUNTER 2021-08-22 16:49 | Emergency (ER) | payer SELFPAY ==
--- NOTE | 2021-08-22 16:52 | EDM.PDOC ---
ED HPI GENERAL MEDICAL PROBLEM - General Stated Complaint: COUGH, FEVER, CHILLS Time Seen by Provider: 08/22/21 16:51 Source of Information: Reports: Patient History Limitations: Reports: No Limitations - History of Present Illness INITIAL COMMENTS - FREE TEXT/NARRATIVE: HISTORY AND PHYSICAL: History of present illness: Patient is a 41-year-old female who presents to the emergency room with complaints of cough, body aches, subjective fever and chills x3 days. She is concerned she has bronchitis or COVID-19. Patient denies any headache, change in vision, syncope or near syncope. Denies any chest pain, back pain, shortness of breath, GI or symptoms. Patient has been eating and drinking appropriately. No recent travel or sick contacts. Review of systems: As per history of present illness and below otherwise all systems reviewed and negative. Past medical history: As per history of present illness and as reviewed below otherwise noncontributory. Surgical history: As per history of present illness and as reviewed below otherwise noncontributory. Social history: See social history for further information Family history: As per history of present illness and as reviewed below otherwise noncontributory. Physical exam: General: Well developed and well nourished. Alert and orientated x 3. Nontoxic in appearance and in no acute distress. Vital signs are stable and have been reviewed by me. Nursing notes were reviewed. HEENT: Atraumatic, normocephalic, pupils equal and reactive bilaterally, negative for conjunctival pallor or scleral icterus, mucous membranes moist, TMs normal bilaterally, throat clear, neck supple, nontender, trachea midline. No drooling or trismus noted. No meningeal signs. No hot potato voice noted. Lungs: Clear to auscultation bilaterally. No wheezes, rales, or rhonchi. Chest nontender. Normal work of breathing, no accessory muscles used. Heart: S1S2, regular rate and rhythm without overt murmur, gallops, or rubs. No JVD. No peripheral edema Abdomen: Soft, nondistended, nontender. Normoactive bowel sounds. Negative for masses or costovertebral tenderness. Skin: Intact, warm, dry. No lesions or rashes noted. Hematologic: No petechiae or purpra. Mucosa appropriate color and normal nail bed color and refill. Extremities: Atraumatic, moves all extremities per self without difficulty or deficits, negative for cords or calf pain. Neurovascular unremarkable. Neuro: Awake, alert, oriented. Cranial nerves II through XII unremarkable. Cerebellum unremarkable. Motor and sensory unremarkable throughout. Exam nonfocal. Psychiatric: Mood and affect are appropriate. Normal thought process. Answering questions appropriately. Please note that the patient was seen and evaluated during the 2019 SARS-CoV-2 novel coronavirus pandemic period. Community viral transmission is ongoing at time of this encounter and the emergency department is operating under pandemic response procedures. Medical Decision Making: Chest x-ray is unremarkable. Patient is positive for influenza A. Vital signs are stable. I have talked with the patient about today's findings, in addition to providing specific details for plan of care. Reassessment at the time of disposition demonstrates that the patient is in no acute distress. The patient is stable for discharge, counseling was provided and we discussed in great detail signs and symptoms that would prompt them to return to the Emergency Department. Medication, follow up and supportive care measures were reviewed and discussed. Voices understanding and is agreeable to plan of care. Denies any further questions or concerns at this time. Diagnostics: Chest x-ray, COVID-19 Therapeutics: None Prescription: None Impression: Influenza A Plan: 1. You were evaluated today on an emergent basis. Chest x-ray shows no evidence of pneumonia/bronchitis. Your COVID is negative. But you do have influenza A. This is still considered contagious, so please do good hand washing, wash hands frequently, and cover your mouth while coughing. 2. You can alternate Tylenol and ibuprofen as needed for pain and fever management. 3. We encourage you to follow up with your primary care provider and/or recommended specialist in the next few days for re-evaluation and further care/management. 4. If your symptoms should worsen, new symptoms develop or any of the signs and symptoms we discussed should arise please return to the emergency room or call 911 (if needed). Definitive disposition and diagnosis as appropriate pending reevaluation and review of above. 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: Musculoskeletal History: Reports: None Neurological History: Reports: None Psychiatric History: Reports: None Endocrine/Metabolic History: Reports: None Hematologic History: Reports: None Oncologic (Cancer) History: Reports: None Dermatologic History: Reports: None - Infectious Disease History Infectious Disease History: Reports: MRSA - Past Surgical History HEENT Surgical History: Reports: Other (See Below) Other HEENT Surgeries/Procedures: ear surgery GI Surgical History: Reports: None Social & Family History - Family History Family Medical History: No Pertinent Family History - Caffeine Use Caffeine Use: Reports: None ED ROS GENERAL - Review of Systems Review Of Systems: Comprehensive ROS is negative, except as noted in HPI. ED EXAM, GENERAL - Physical Exam Exam: See Below (See dictation) Course - Vital Signs Last Recorded V/S: Last Vital Signs Temp 96.6 F L 08/22/21 16:56 Pulse 113 H 08/22/21 16:56 Resp 18 08/22/21 16:56 BP 117/82 08/22/21 16:56 Pulse Ox 99 08/22/21 16:56 - Orders/Labs/Meds Labs: Laboratory Tests 08/22/21 Range/Units 16:53 Influenza Type A RNA POSITIVE H (NEGATIVE) Influenza Type B RNA NEGATIVE (NEGATIVE) SARS-CoV-2 RNA (HEVER) NEGATIVE (NEGATIVE) Departure - Departure Time of Disposition: 17:44 Disposition: Home, Self-Care 01 Clinical Impression: Influenza A - Discharge Information Instructions: Influenza, Adult, [id number] Referrals: PCP,None [Primary Care Provider] - Additional Instructions: The following information is given to patients seen in the emergency department who are being discharged to home. This information is to outline your options for follow-up care. We provide all patients seen in our emergency department with a follow-up referral. The need for follow-up, as well as the timing and circumstances, are variable depending upon the specifics of your emergency department visit. If you don't have a primary care physician on staff, we will provide you with a referral. We always advise you to contact your personal physician following an emergency department visit to inform them of the circumstance of the visit and for follow-up with them and/or the need for any referrals to a consulting specialist. The emergency department will also refer you to a specialist when appropriate. This referral assures that you have the opportunity for follow-up care with a specialist. All of these measure are taken in an effort to provide you with optimal care, which includes your follow-up. Under all circumstances we always encourage you to contact your private physician who remains a resource for coordinating your care. When calling for follow-up care, please make the office aware that this follow-up is from your recent emergency room visit. If for any reason you are refused follow-up, please contact the [facility] Emergency Department at and asked to speak to the emergency department charge nurse. [facility] [address] [place] [address] [place] [address] Thank you for choosing the [facility] emergency department in [place] for your medical needs today. It was a pleasure caring for you. Today you were seen in the emergency department for Influenza A 1. You were evaluated today on an emergent basis. Chest x-ray shows no evidence of pneumonia/bronchitis. Your COVID is negative. But you do have influenza A. This is still considered contagious, so please do good hand washing, wash hands frequently, and cover your mouth while coughing. 2. You can alternate Tylenol and ibuprofen as needed for pain and fever management. 3. We encourage you to follow up with your primary care provider and/or recommended specialist in the next few days for re-evaluation and further care/management. 4. If your symptoms should worsen, new symptoms develop or any of the signs and symptoms we discussed should arise please return to the emergency room or call 911 (if needed). Sepsis Event Note (ED) - Focused Exam Vital Signs: Vital Signs Temp Pulse Resp BP Pulse Ox 08/22/21 16:56 96.6 F L 113 H 18 117/82 99
--- NOTE | 2021-08-22 17:32 | CR ---
HISTORY: Chest pain and shortness of breath. COMPARISON: None available FINDINGS: A portable erect AP view of the chest was obtained at 1705 hours. The lungs are clear. No focal or diffuse infiltrates are present. There is no sign of pneumothorax or abnormality of the ribs to correlate with the history of chest pain. The heart is normal in size. The mediastinum is normal in appearance. The osseous structures are normal in appearance for the patient`s age. IMPRESSION: Normal portable chest single view. Dictated by Sen Chauhan MD @ 08/22/2021 5:31:17 PM (Electronically Signed)
[2021-08-22 17:37] LABS: CORONAVIRUS COVID-19 NAA NEGATIVE (NEGATIVE); INFLUENZA A NAA POSITIVE (NEGATIVE); INFLUENZA B NAA NEGATIVE (NEGATIVE)
== END 2021-08-22 17:55 | disposition home or self-care (01) ==
LOC: MW.ED 16:49
DX: J10.1 Influenza due to other identified influenza virus with other respiratory manifestations (principal); Z20.822 Contact with and (suspected) exposure to COVID-19
CPT/HCPCS: 0240U; 71045; 99283

== ENCOUNTER 2021-09-12 16:46 | Emergency (ER) | payer SELFPAY ==
[2021-09-12] MEDS ORDERED: Sodium Chloride 0.9% 1,000 ML IV STA (17:48)
[2021-09-12] MEDS ORDERED: Ondansetron 4 MG/2 ML SDV IVPUSH ONE (17:48)
[2021-09-12] MEDS ORDERED: Ketorolac 30 MG/ML SDV IVPUSH ONE (17:48)
[2021-09-12 18:22] LABS: BLOOD UREA NITROGEN,BUN 13 mg/dL (7.0-18.0); CARBON DIOXIDE,CO2 25.2 mmol/L (21.0-32.0); CHLORIDE,CL 105 mmol/L (98-107); GLUCOSE RANDOM 107 mg/dL (74-106); LIPASE 71 U/L (73-393); POTASSIUM,K 3.7 mmol/L (3.5-5.1); SODIUM,NA 139 mmol/L (136-145)
== END 2021-09-12 19:09 | disposition home or self-care (01) ==
LOC: MW.ED 16:46
DX: N30.00 Acute cystitis without hematuria (principal); R11.2 Nausea with vomiting, unspecified; M54.50 Low back pain, unspecified; Z79.899 Other long term (current) drug therapy
CPT/HCPCS: 36415; 80053; 81001; 81025; 83690; 85025; 87086; 96374; 96375; 99284; J1885; J2405; J7030

== ENCOUNTER 2022-03-19 14:57 | Emergency (ER) | payer SELFPAY ==
[2022-03-19 17:44] LABS: POTASSIUM,K 3.7 mmol/L (3.5-5.1)
[2022-03-19 18:12] LABS: CORONAVIRUS COVID-19 NAA NEGATIVE (NEGATIVE); INFLUENZA A NAA NEGATIVE (NEGATIVE); INFLUENZA B NAA NEGATIVE (NEGATIVE)
[2022-03-19] MEDS: Ketorolac 60 MG/2 ML SDV IM ONE (18:15)
[2022-03-19] MEDS: Orphenadrine 60 MG/2 ML Inj IM ONE (18:15)
== END 2022-03-19 18:49 | disposition home or self-care (01) ==
LOC: MW.ED 14:57
DX: M62.830 Muscle spasm of back (principal); Z20.822 Contact with and (suspected) exposure to COVID-19
CPT/HCPCS: 0240U; 36415; 80053; 84703; 85025; 96372; 99283; J1885; J2360

== ENCOUNTER 2023-02-07 10:13 | Emergency (ER) | payer SELFPAY | END 2023-02-07 11:51 | disposition home or self-care (01) | LOC: MW.ED 10:13 | DX: J06.9 Acute upper respiratory infection, unspecified (principal); Z20.822 Contact with and (suspected) exposure to COVID-19 | CPT/HCPCS: 87651-QW; 99283; U0002 ==

== ENCOUNTER 2023-10-13 14:49 | Emergency (ER) | payer SELFPAY ==
[2023-10-13 16:35] LABS: APPEARANCE,URINE CLEAR; BILIRUBIN,URINE NEGATIVE (NEGATIVE); COLOR,URINE YELLOW; GLUCOSE,URINE NEGATIVE (NEGATIVE); KETONES,URINE NEGATIVE (NEGATIVE); LEUKOCYTE ESTERASE,URINE TRACE (NEGATIVE); NITRITE,URINE NEGATIVE (NEGATIVE); OCCULT BLOOD,URINE NEGATIVE (NEGATIVE); PH,URINE 5.5 (5.0-8.0); PROTEIN,URINE NEGATIVE (NEGATIVE); UROBILINOGEN,URINE 0.2 EU/dL (<2.0)
[2023-10-13 16:44] LABS: BACTERIA,URINE FEW (NEGATIVE); EPITHELIAL CELLS,URINE FEW (NONE-FEW); RBC,URINE 0-1 (0-2/HPF)
[2023-10-13 16:45] LABS: MUCUS,URINE LIGHT (NONE-MOD)
[2023-10-13 17:12] LABS: BASOPHILS ABSOLUTE AUTO 0.03 K/uL (0.00-0.20); BASOPHILS PERCENT AUTO 0.4 % (0.0-1.0); EOSINOPHILS ABSOLUTE AUTO 0.18 K/uL (0.00-0.45); EOSINOPHILS PERCENT AUTO 2.4 % (0.0-6.0); HEMATOCRIT 42.4 % (37.0-47.0); HEMOGLOBIN 14.6 g/dL (12.0-16.0); IMMATURE GRAN ABSOLUTE AUTO 0.02 K/uL (0.00-0.05); IMMATURE GRAN PERCENT AUTO 0.3 % (0.0-0.4); LYMPHOCYTES ABSOLUTE AUTO 1.95 K/uL (1.00-4.80); LYMPHOCYTES PERCENT AUTO 26.2 % (24.0-44.0); MEAN CORPUSCULAR HEMOGLOBIN 31.1 pg (28.0-32.0); MEAN CORPUSCULAR HGB CONC 34.4 g/dL (32.0-36.0); MEAN CORPUSCULAR VOLUME 90.4 fL (83.0-99.0); MEAN PLATELET VOLUME 9.2 fL (9.4-12.3); MONOCYTES ABSOLUTE AUTO 0.51 K/uL (0.00-0.80); MONOCYTES PERCENT AUTO 6.8 % (0.0-8.0); NEUTROPHILS ABSOLUTE AUTO 4.76 K/uL (1.80-7.70); NEUTROPHILS PERCENT AUTO 63.9 % (41.0-71.0); PLATELET COUNT,PLT 263 K/uL (150-400); RED BLOOD CELL COUNT 4.69 M/uL (4.10-5.30); WHITE BLOOD CELL COUNT,WBC 7.45 K/uL (3.9-11.3)
[2023-10-13 18:02] LABS: A/G RATIO 0.8 (0.9-1.6); ALBUMIN 3.5 g/dL (3.4-5.0); BILIRUBIN TOTAL 0.4 mg/dL (0.2-1.0); CALCIUM 8.7 mg/dL (8.5-10.1); CARBON DIOXIDE,CO2 24.7 mmol/L (21.0-32.0); CREATININE 0.6 mg/dL (0.6-1.0); EST CRCL DRUG DOSING (CG) 100.01 mL/min
== END 2023-10-13 18:10 | disposition home or self-care (01) ==
LOC: MW.ED 14:49
DX: R10.84 Generalized abdominal pain (principal); M54.2 Cervicalgia
CPT/HCPCS: 36415; 80053; 81001; 85025; 87086; 99283; 99284